=== PATIENT | male | born 1935 | race African-American/Black ===

== ENCOUNTER 2019-06-24 08:54 | Inpatient (IN) | payer MEDICARE, BC ==
[~2019-06-24] VITALS: Ht 170.2 cm; Wt 73.0 kg
[~2019-06-24 08:54] MED LIST: AMLO5TAB10 PO; ASPI-630 PO; ATOR20TA58 PO; IPRA4AER IH; LEVO250T25 PO; LOSA1TAB25 PO; LOSA25TA54 PO; METF500T11 PO; SODI650T PO; UNABLE MC
--- NOTE | 2019-06-24 09:14 | PHYS DOC ---
Past Medical History Past Medical History: Cancer, Diabetes-Type II, High Cholesterol, Hypertension Additional Past Medical Histor: PROSTATE CANCER, Past Surgical History: No Surgical History Alcohol Use: None Drug Use: None Adult General Chief Complaint Chief Complaint: DIZZY/LIGHT HEADED HPI HPI Patient is a 84 year old male that presents with nausea, vomiting, lightheadedness, tremors and dizziness that has been ongoing for 30 minutes. The patient denies the room spinning, the patient describes the lightheadedness is almost passing out. The patient denies any pain, denies any fever, denies any symptoms went to bed last night. The patient's blood pressure in the room was 187/101, patient states he took his blood pressure medicine before he went to bed last night. Review of Systems Review of Systems Constitutional: Denies fever or chills. Reports tremors. Eyes: Denies change in visual acuity, redness, or eye pain [] HENT: Denies nasal congestion or sore throat [] Respiratory: Denies cough or shortness of breath [] Cardiovascular: No additional information not addressed in HPI [] GI: Denies abdominal pain, nausea, vomiting, bloody stools or diarrhea [] : Denies dysuria or hematuria [] Musculoskeletal: Denies back pain or joint pain [] Integument: Denies rash or skin lesions [] Neurologic: Reports dizziness. Denies headache, focal weakness or sensory changes [] Endocrine: Denies polyuria or polydipsia [] Complete systems were reviewed and found to be within normal limits, except as documented in this note. Current Medications Current Medications Current Medications Medications (Trade) Dose Ordered Sig/[facility] Start Time Stop Time Status Last Admin Dose Admin Ceftriaxone Sodium (Rocephin) 1 gm 1X ONCE 06/24/19 10:45 06/24/19 10:46 DC 06/24/19 10:49 1 GM Prochlorperazine Edisylate (Compazine) 10 mg 1X ONCE 06/24/19 09:15 06/24/19 09:16 DC 06/24/19 09:36 10 MG Sodium Chloride 1,000 ml @ 1,000 mls/hr 1X ONCE 06/24/19 10:45 06/24/19 11:44 DC 06/24/19 10:49 1,000 MLS/HR Allergies Allergies Allergies Coded Allergies Type Severity Reaction Last Updated Verified No Known Drug Allergies 10/03/17 No Physical Exam Physical Exam Constitutional: Well developed, well nourished, no acute distress, non-toxic appearance. [] HENT: Normocephalic, atraumatic, bilateral external ears normal, oropharynx moist, no oral exudates, nose normal. [] Eyes: PERRLA, EOMI, conjunctiva normal, no discharge. [] Neck: Normal range of motion, no tenderness, supple, no stridor. [] Cardiovascular:Heart rate regular rhythm, no murmur [] Lungs & Thorax: Bilateral breath sounds clear to auscultation [] Abdomen: Bowel sounds normal, soft, no tenderness, no masses, no pulsatile masses. [] Skin: Warm, dry, no erythema, no rash. [] Back: No tenderness, no CVA tenderness. [] Extremities: No tenderness, no cyanosis, no clubbing, ROM intact, no edema. [] Neurologic: Alert and oriented X 3, Has bilateral arm tremors, normal sensory function, no focal deficits noted. [] Psychologic: Affect normal, judgement normal, mood normal. [] Current Patient Data Vital Signs Vital Signs Date Time Temp Pulse Resp B/P (MAP) Pulse Ox O2 Delivery O2 Flow Rate FiO2 06/24/19 09:05 98.5 121 16 187/101 (129) 98 Room Air 98.5 Lab Values Laboratory Tests Test 06/24/19 09:20 06/24/19 10:25 06/24/19 10:40 Sodium Level 141 mmol/L (136-145) Potassium Level 4.5 mmol/L (3.5-5.1) Chloride Level 104 mmol/L (98-107) Carbon Dioxide Level 25 mmol/L (21-32) Anion Gap 12 (6-14) Blood Urea Nitrogen 24 mg/dL (8-26) Creatinine 1.6 mg/dL (0.7-1.3) H Estimated GFR (Cockcroft-Gault) 50.0 BUN/Creatinine Ratio 15 (6-20) Glucose Level 132 mg/dL (70-99) H Lactic Acid Level 4.1 mmol/L (0.4-2.0) *H Calcium Level 9.1 mg/dL (8.5-10.1) Total Bilirubin 0.5 mg/dL (0.2-1.0) Aspartate Amino Transferase (AST) 15 U/L (15-37) Alanine Aminotransferase (ALT) 13 U/L (16-63) L Alkaline Phosphatase 64 U/L (46-116) Creatine Kinase 90 U/L (39-308) Troponin I Quantitative < 0.017 ng/mL (0.000-0.055) Total Protein 8.5 g/dL (6.4-8.2) H Albumin 3.9 g/dL (3.4-5.0) Albumin/Globulin Ratio 0.8 (1.0-1.7) L White Blood Count 14.6 x10^3/uL (4.0-11.0) H Red Blood Count 3.86 x10^6/uL (4.30-5.70) L Hemoglobin 10.9 g/dL (13.0-17.5) L Hematocrit 33.9 % (39.0-53.0) L Mean Corpuscular Volume 88 fL (79-100) Mean Corpuscular Hemoglobin 28 pg (25-35) Mean Corpuscular Hemoglobin Concent 32 g/dL (31-37) Red Cell Distribution Width 15.2 % (11.5-14.5) H Platelet Count 238 x10^3/uL (140-400) Neutrophils (%) (Auto) 93 % (31-73) H Lymphocytes (%) (Auto) 3 % (24-48) L Monocytes (%) (Auto) 3 % (0-9) Eosinophils (%) (Auto) 0 % (0-3) Basophils (%) (Auto) 0 % (0-3) Neutrophils # (Auto) 13.6 x10^3/uL (1.8-7.7) H Lymphocytes # (Auto) 0.5 x10^3/uL (1.0-4.8) L Monocytes # (Auto) 0.4 x10^3/uL (0.0-1.1) Eosinophils # (Auto) 0.0 x10^3/uL (0.0-0.7) Basophils # (Auto) 0.0 x10^3/uL (0.0-0.2) Platelet Estimate Pending Urine Collection Type Unknown Urine Color Yellow Urine Clarity Clear Urine pH 5.5 Urine Specific [place] 1.020 Urine Protein Negative mg/dL (NEG-TRACE) Urine Glucose (UA) Negative mg/dL (NEG) Urine Ketones (Stick) Negative mg/dL (NEG) Urine Blood Negative (NEG) Urine Nitrite Negative (NEG) Urine Bilirubin Negative (NEG) Urine Urobilinogen Dipstick 0.2 mg/dL (0.2 mg/dL) Urine Leukocyte Esterase Small (NEG) Urine RBC 0 /HPF (0-2) Urine WBC 1-4 /HPF (0-4) Urine Squamous Epithelial Cells Few /LPF Urine Amorphous Sediment Present /HPF Urine Bacteria Few /HPF (0-FEW) Laboratory Tests 06/24/19 10:25 Laboratory Tests 06/24/19 09:20 EKG EKG EKG interpreted by Dr. Zavala at 0910. EKG shows sinus tachycardia with rate of 116. The EKG has severe artifact due to tremors by patient. No STEMI. Radiology/Procedures Radiology/Procedures [][facility] [address] [place] [address] IMAGING REPORT Signed PATIENT: GEORGE VELAZQUEZ ACCOUNT: [id number] : 1935 LOCATION: ER AGE: 84 SEX: M EXAM STATUS: REG ER ORD. PHYSICIAN: SHADIA WOODS APRN REASON: near syncope PROCEDURE: CHEST PA & LATERAL PA and lateral chest radiographs 06/24/2019 CLINICAL HISTORY: Unexplained near syncope. PA and lateral digital radiographs of chest were obtained. The cardiac silhouette is normal in size. The thoracic aorta is tortuous. Calcified hilar and mediastinal lymph nodes are seen. Small calcified granulomas are seen involving both lungs, right greater than left. No acute pulmonary infiltrate is noted. No pneumothorax or pleural effusion is seen. Degenerative changes are seen involving the thoracic spine. IMPRESSION: No acute abnormality is seen. Electronically signed by: Laron Manriquez MD (06/24/2019 9:56 AM) [facility] DICTATED and SIGNED BY: LARON MANRIQUEZ MD DATE: 06/24/19 0956 Course & Med Decision Making Course & Med Decision Making Pertinent Labs and Imaging studies reviewed. (See chart for details) The patient heart rate in room is 120 on arrival, and his bp is 187/101. On assessment in the room the patient threw up into a basin. Will obtain EKG, labs including lactic acid. Will also obtain Urine, and chest x-ray. WBC and Lactic are elevated at 14,000, and 4.2. Will order 30 ml/kg fluids and Rocephin. Urine shows leukocytes. Patient appears to be septic, discussed with Dr. Goldsmith who agrees to admission. Dragon Disclaimer Dragon Disclaimer This electronic medical record was generated, in whole or in part, using a voice recognition dictation system. Departure Departure Impression: Primary Impression: Sepsis Additional Impression: Urinary tract infection Disposition: ADMITTED INPATIENT Admitting Physician: ALEXIS Condition: GUARDED Referrals: GEORGE CUELLO Jr, MD (PCP) Date and Time of Reassessment Date: Jun 24, 2019 Time: 11:56 Fluid Challenge Is the fluid challenge complet: No IBW Target Volume Used: No BMI > 30: No Vital Signs Vital Signs: Vital Signs Date Time Temp Pulse Resp B/P (MAP) Pulse Ox O2 Delivery O2 Flow Rate FiO2 06/24/19 09:05 98.5 121 16 187/101 (129) 98 Room Air 98.5 Temperature Source: Oral Respirations Respiratory Effort: Normal Cardiovascular Pulse Rhythm: Regular Heart: S1 and S2 normal Capillary Refil Capillary Refill: Rt Hand < 3 seconds Peripheral Pulse Pulse Location: Monitor Pulse Strength: Normal (2+) Pulse Assessment Method: Palpation Integumentary Skin: Warm, Dry Skin Moisture: Dry Skin Turgor: Normal Skin Color: warm, dry Fingernail Color: WNL Problem Qualifiers Primary Impression: Sepsis Sepsis type: sepsis due to unspecified organism Sepsis acute organ dysfunction status: unspecified Qualified Codes: A41.9 - Sepsis, unspecified organism Additional Impression: Urinary tract infection Urinary tract infection type: acute cystitis Hematuria presence: without hematuria Qualified Codes: N30.00 - Acute cystitis without hematuria SHADIA WOODS APRN Jun 24, 2019 09:14
[2019-06-24] MEDS ORDERED: PROCHLORPERAZINE 10 MG/2 ML VIAL. IV ONE (09:15)
[2019-06-24] MEDS ORDERED: IV NORMAL SALINE 500ML BAG 500 ML IV ONE (09:15)
--- NOTE | 2019-06-24 09:59 | RAD ---
PA and lateral chest radiographs 06/24/2019 CLINICAL HISTORY: Unexplained near syncope. PA and lateral digital radiographs of chest were obtained. The cardiac silhouette is normal in size. The thoracic aorta is tortuous. Calcified hilar and mediastinal lymph nodes are seen. Small calcified granulomas are seen involving both lungs, right greater than left. No acute pulmonary infiltrate is noted. No pneumothorax or pleural effusion is seen. Degenerative changes are seen involving the thoracic spine. IMPRESSION: No acute abnormality is seen. Electronically signed by: Laron Manriquez MD (06/24/2019 9:56 AM) [facility]
[2019-06-24 10:16] LABS: CALCIUM 9.1 mg/dL (8.5-10.1); CREATININE 1.6 mg/dL (0.7-1.3); POTASSIUM 4.5 mmol/L (3.5-5.1)
[2019-06-24 10:26] LABS: ALBUMIN 3.9 g/dL (3.4-5.0); ALBUMIN/GLOBULIN RATIO 0.8 (1.0-1.7); TOTAL BILIRUBIN 0.5 mg/dL (0.2-1.0); TOTAL PROTEIN 8.5 g/dL (6.4-8.2)
[2019-06-24 10:35] LABS: BASO % 0 % (0-3); EOS % 0 % (0-3); HEMATOCRIT 33.9 % (39.0-53.0); HEMOGLOBIN 10.9 g/dL (13.0-17.5); LYMPH # 0.5 x10^3/uL (1.0-4.8); LYMPH % 3 % (24-48); MEAN CORPUSCULAR HEMOGLOBIN 28 pg (25-35); MEAN CORPUSCULAR HGB CONC 32 g/dL (31-37); MEAN CORPUSCULAR VOLUME 88 fL (79-100); MONO # 0.4 x10^3/uL (0.0-1.1); MONO % 3 % (0-9); NEUT # 13.6 x10^3/uL (1.8-7.7); NEUT % 93 % (31-73); PLATELET COUNT 238 x10^3/uL (140-400); RED BLOOD COUNT 3.86 x10^6/uL (4.30-5.70); RED CELL DISTRIBUTION WIDTH 15.2 % (11.5-14.5); WHITE BLOOD COUNT 14.6 x10^3/uL (4.0-11.0)
[2019-06-24] MEDS ORDERED: cefTRIAXone IV Push 1 GM VIAL. IVP ONE (10:45)
[2019-06-24] MEDS ORDERED: IV NORMAL SALINE 1000ML BAG 1,000 ML IV ONE ×2 (10:45)
[2019-06-24 11:19] LABS: BILIRUBIN,URINE NEGATIVE (NEG); CLARITY,URINE CLEAR; COLOR,URINE YELLOW; NITRITE,URINE NEGATIVE (NEG); PH,URINE 5.5; PROTEIN,URINE NEGATIVE (NEG-TRACE); UROBILINOGEN,URINE 0.2 mg/dL (0.2 mg/dL)
[2019-06-24 11:22] LABS: AMORPHOUS SEDIMENT,UR PRESENT /HPF; BACTERIA,URINE FEW /HPF (0-FEW); RBC,URINE 0 /HPF (0-2); SQUAMOUS EPITHELIAL CELL,UR FEW /LPF
[2019-06-24 11:57] LABS: % LYMPHS 7 % (24-48); % MONOS 1 % (0-10); % SEGS 92 % (35-66); PLT ESTIMATE ADEQUATE (ADEQUATE)
[2019-06-24] MEDS ORDERED: fentaNYL PF VIAL 100 MCG/2 ML VIAL IV PRN (12:00)
[2019-06-24] MEDS ORDERED: ONDANSETRON PF 4 MG/2 ML VIAL. IV PRN (12:00)
[2019-06-24] MEDS ORDERED: DESM0.2T20 PO (12:54)
[2019-06-24 13:45] VITALS: BP 126/45
[2019-06-24 15:00] VITALS: BP 130/40
[2019-06-24] MEDS ORDERED: DEXTROSE 50% 25 GM / 50ML DISP.SYRIN. IV PRN (15:45)
[2019-06-24] MEDS ORDERED: IV DEXTROSE 5% 250 ML BAG. IV PRN (15:45)
--- NOTE | 2019-06-24 15:55 | PDOC1 ---
History and Physical Date of Admission Date of Admission DATE: 06/24/19 TIME: 15:29 Identification/Chief Complaint Chief Complaint Nausea and vomiting Source Source: Patient History of Present Illness History of Present Illness Mr Hollins is an 84 yo male w/ PMHx Diabetes-Type II, High Cholesterol, Hypertension, prostate cancer who p/w nausea, vomiting, lightheadedness, tremors and dizziness that has been ongoing for the entire morning after waking up. The patient denies the room spinning, the patient describes the lightheadedness is almost passing out. The patient denies any pain, denies any fever, denies any symptoms went to bed last night. The patient's blood pressure in the room was 187/101, patient states he took his blood pressure medicine before he went to bed last night. In ED lactate was 4.1, WBC 14.6, HR 125 bpm. CXR clear, troponin negative. Cr elevated at 1.6 Past Medical History Cardiovascular: HTN, Hyperlipidemia CENTRAL NERVOUS SYSTEM: Other GI: No pertinent hx Heme/Onc: Cancer Hepatobiliary: No pertinent hx Psych: No pertinent hx Musculoskeletal: Osteoarthritis Rheumatologic: No pertinent hx Infectious disease: No pertinent hx Renal/: No pertinent hx Endocrine: Diabetes Past Surgical History Past Surgical History: Hernia Repair, Colon Resection Family History Family History: Diabetes Social History Smoke: No ALCOHOL: none Drugs: None Current Problem List Problem List Problems Medical Problems: (1) Sepsis Status: Acute (2) Urinary tract infection Status: Acute Current Medications Current Medications Current Medications Prochlorperazine Edisylate (Compazine) 10 mg 1X ONCE IV Last administered on 06/24/19at 09:36; Start 06/24/19 at 09:15; Stop 06/24/19 at 09:16; Status DC Sodium Chloride 500 ml @ 500 mls/hr 1X ONCE IV Last administered on 06/24/19at 09:36; Start 06/24/19 at 09:15; Stop 06/24/19 at 10:14; Status DC Ceftriaxone Sodium (Rocephin) 1 gm 1X ONCE IVP Last administered on 06/24/19at 10:49; Start 06/24/19 at 10:45; Stop 06/24/19 at 10:46; Status DC Sodium Chloride 1,000 ml @ 1,000 mls/hr 1X ONCE IV Last administered on 06/24/19at 10:49; Start 06/24/19 at 10:45; Stop 06/24/19 at 11:44; Status DC Sodium Chloride 1,000 ml @ 1,000 mls/hr 1X ONCE IV Last administered on 06/24/19at 10:49; Start 06/24/19 at 10:45; Stop 06/24/19 at 11:44; Status DC Ondansetron HCl (Zofran) 4 mg PRN Q8HRS PRN IV NAUSEA/VOMITING; Start 06/24/19 at 12:00; Stop 06/25/19 at 11:59 Fentanyl Citrate (Fentanyl 2ml Vial) 50 mcg PRN Q1HR PRN IV PAIN; Start 06/24/19 at 12:00; Stop 06/25/19 at 11:59 Active Scripts Active Combivent Respimat Inhal (Ipratropium/Albuterol Sulfate) 4 Gm Aer.w.adap 1 Inh IH QID Levaquin (Levofloxacin) 250 Mg Tablet 250 Mg PO DAILY Sodium Bicarbonate 650 Mg Tablet 1,300 Mg PO BID Amlodipine Besylate 5 Mg Tablet 5 Mg PO DAILY Reported Ddavp (Desmopressin Acetate) 0.2 Mg Tablet 0.1 Mg PO QHS Aspirin 81 Mg Tab.chew 1 Tab PO DAILY Losartan-Hctz 100-12.5 Mg Tab (Losartan/Hydrochlorothiazide) 1 Each Tablet 1 Tab PO DAILY Atorvastatin Calcium 20 Mg Tablet 20 Mg PO DAILY Metformin Hcl Er (Metformin Hcl) 500 Mg Tab.er.24h 500 Mg PO [id number] Unable To Obtain Meds From Prior To Admit (Info) Each 1 Each Allergies Allergies: Coded Allergies: No Known Drug Allergies (Unverified , 10/03/17) ROS General: YES: Fatigue, Malaise, Appetite; No: Chills, Night Sweats, Other PSYCHOLOGICAL ROS: No: Anxiety, Behavioral Disorder, Concentration difficultie, Decreased libido, Depression, Disorientation, Hallucinations, Hostility, Irritablity, Memory difficulties, Mood Swings, Obsessive thoughts, Physical abuse, Sexual abuse, Sleep disturbances, Suicidal ideation, Other Eyes: No Blurry vision, No Decreased vision, No Double vision, No Dry eyes, No Excessive tearing, No Eye Pain, No Itchy Eyes, No Loss of vision, No Photophobia, No Scotomata, No Uses contacts, No Uses glasses, No Other HEENT: No: Heacaches, Visual Changes, Hearing change, Nasal congestion, Nasal discharge, Oral lesions, Sinus pain, Sore Throat, Epistaxis, Sneezing, Snoring, Tinnitus, Vertigo, Vocal changes, Other ALLERGY AND IMMUNOLOGY: No: Hives, Insect Bite Sensitivity, Itchy/Watery Eyes, Nasal Congestion, Post Nasal Drip, Seasonal Allergies, Other Hematological and Lymphatic: No: Bleeding Problems, Blood Clots, Blood Transfusions, Brusing, Night Sweats, Pallor, Swollen Lymph Nodes, Other ENDOCRINE: No: Breast Changes, Galactorrhea, Hair Pattern Changes, Hot Flashes, Malaise/lethargy, Mood Swings, Palpitations, Polydipsia/polyuria, Skin Changes, Temperature Intolerance, Unexpected Weight Changes, Other Breast: No New/Changing Breast Lumps, No Nipple changes, No Nipple discharge, No Other Respiratory: No: Cough, Hemoptysis, Orthopnea, Pleuritic Pain, Shortness of breath, SOB with excertion, Sputum Changes, Stridor, Tachypnea, Wheezing, Other Cardiovascular: No Chest Pain, No Palpitations, No Orthopnea, No Paroxysmal Noc. Dyspnea, No Edema, No Lt Headedness, No Other Gastrointestinal: Yes Nausea, Yes Vomiting, Yes Abdominal Pain; No Diarrhea, No Constipation, No Melena, No Hematochezia, No Other Genitourinary: YES Frequency; No Dysuria, No Incontinence, No Hematuria, No Retention, No Discharge, No Urgency, No Pain, No Flank Pain, No Other, No , No , No , No , No , No , No Musculoskeletal: Yes Gait Disturbance; No Joint Pain, No Joint Stiffness, No Joint Swelling, No Muscle Pain, No Musc ular Weakness, No Pain In:, No Swelling In:, No Other Neurological: Yes Dizziness, Yes Gait Disturbance; No Behavorial Changes, No Bowel/Bladder ControlChng, No Confusion, No Headaches, No Impaired Coord/balance, No Memory Loss, No Numbness/Tingling, No Seizures, No Speech Problems, No Tremors, No Visual Changes, No Weakness, No Other Skin: No Dry Skin, No Eczema, No Hair Changes, No Lumps, No Mole Changes, No Mottling, No Nail Changes, No Pruritus, No Rash, No Skin Lesion Changes, No Other, No Acne Physical Exam General: Alert, Cooperative, No acute distress HEENT: Atraumatic, PERRLA, EOMI, Mucous membr. moist/pink Lungs: Clear to auscultation, Normal air movement Heart: S1S2, RRR, no gallops, no murmurs Abdomen: Normal bowel sounds, Soft, No hepatosplenomegaly, No masses, Other (epigastric tenderness) Rectal Exam: not examined Extremities: No clubbing, No cyanosis, No edema, Normal pulses, No tenderness/swelling Skin: No rashes, No breakdown, No significant lesion Neuro: Normal speech, Strength at 5/5 X4 ext, Normal tone, Sensation intact, Cranial nerves 3-12 NL, Reflexes 2+ Psych/Mental Status: Mental status NL, Mood NL Vitals Vitals Vital Signs Date Time Temp Pulse Resp B/P (MAP) Pulse Ox O2 Delivery O2 Flow Rate FiO2 06/24/19 13:45 100.0 108 18 126/45 (72) Room Air 100.0 06/24/19 11:57 97 Labs Labs Laboratory Tests Test 06/24/19 09:20 06/24/19 10:25 06/24/19 10:40 06/24/19 13:50 Sodium Level 141 mmol/L (136-145) Potassium Level 4.5 mmol/L (3.5-5.1) Chloride Level 104 mmol/L (98-107) Carbon Dioxide Level 25 mmol/L (21-32) Anion Gap 12 (6-14) Blood Urea Nitrogen 24 mg/dL (8-26) Creatinine 1.6 mg/dL (0.7-1.3) Estimated GFR (Cockcroft-Gault) 50.0 BUN/Creatinine Ratio 15 (6-20) Glucose Level 132 mg/dL (70-99) Lactic Acid Level 4.1 mmol/L (0.4-2.0) 1.5 mmol/L (0.4-2.0) Calcium Level 9.1 mg/dL (8.5-10.1) Total Bilirubin 0.5 mg/dL (0.2-1.0) Aspartate Amino Transf (AST/SGOT) 15 U/L (15-37) Alanine Aminotransferase (ALT/SGPT) 13 U/L (16-63) Alkaline Phosphatase 64 U/L (46-116) Creatine Kinase 90 U/L (39-308) Troponin I Quantitative < 0.017 ng/mL (0.000-0.055) Total Protein 8.5 g/dL (6.4-8.2) Albumin 3.9 g/dL (3.4-5.0) Albumin/Globulin Ratio 0.8 (1.0-1.7) White Blood Count 14.6 x10^3/uL (4.0-11.0) Red Blood Count 3.86 x10^6/uL (4.30-5.70) Hemoglobin 10.9 g/dL (13.0-17.5) Hematocrit 33.9 % (39.0-53.0) Mean Corpuscular Volume 88 fL (79-100) Mean Corpuscular Hemoglobin 28 pg (25-35) Mean Corpuscular Hemoglobin Concent 32 g/dL (31-37) Red Cell Distribution Width 15.2 % (11.5-14.5) Platelet Count 238 x10^3/uL (140-400) Neutrophils (%) (Auto) 93 % (31-73) Lymphocytes (%) (Auto) 3 % (24-48) Monocytes (%) (Auto) 3 % (0-9) Eosinophils (%) (Auto) 0 % (0-3) Basophils (%) (Auto) 0 % (0-3) Neutrophils # (Auto) 13.6 x10^3/uL (1.8-7.7) Lymphocytes # (Auto) 0.5 x10^3/uL (1.0-4.8) Monocytes # (Auto) 0.4 x10^3/uL (0.0-1.1) Eosinophils # (Auto) 0.0 x10^3/uL (0.0-0.7) Basophils # (Auto) 0.0 x10^3/uL (0.0-0.2) Segmented Neutrophils % 92 % (35-66) Lymphocytes % 7 % (24-48) Monocytes % 1 % (0-10) Platelet Estimate Adequate (ADEQUATE) Urine Collection Type Unknown Urine Color Yellow Urine Clarity Clear Urine pH 5.5 Urine Specific [place] 1.020 Urine Protein Negative mg/dL (NEG-TRACE) Urine Glucose (UA) Negative mg/dL (NEG) Urine Ketones (Stick) Negative mg/dL (NEG) Urine Blood Negative (NEG) Urine Nitrite Negative (NEG) Urine Bilirubin Negative (NEG) Urine Urobilinogen Dipstick 0.2 mg/dL (0.2 mg/dL) Urine Leukocyte Esterase Small (NEG) Urine RBC 0 /HPF (0-2) Urine WBC 1-4 /HPF (0-4) Urine Squamous Epithelial Cells Few /LPF Urine Amorphous Sediment Present /HPF Urine Bacteria Few /HPF (0-FEW) HT-Iso-Y-Type Natriuretic Peptide 148 pg/mL (0-449) Laboratory Tests Test 06/24/19 09:20 06/24/19 10:25 06/24/19 10:40 06/24/19 13:50 Sodium Level 141 mmol/L (136-145) Potassium Level 4.5 mmol/L (3.5-5.1) Chloride Level 104 mmol/L (98-107) Carbon Dioxide Level 25 mmol/L (21-32) Anion Gap 12 (6-14) Blood Urea Nitrogen 24 mg/dL (8-26) Creatinine 1.6 mg/dL (0.7-1.3) Estimated GFR (Cockcroft-Gault) 50.0 BUN/Creatinine Ratio 15 (6-20) Glucose Level 132 mg/dL (70-99) Lactic Acid Level 4.1 mmol/L (0.4-2.0) 1.5 mmol/L (0.4-2.0) Calcium Level 9.1 mg/dL (8.5-10.1) Total Bilirubin 0.5 mg/dL (0.2-1.0) Aspartate Amino Transf (AST/SGOT) 15 U/L (15-37) Alanine Aminotransferase (ALT/SGPT) 13 U/L (16-63) Alkaline Phosphatase 64 U/L (46-116) Creatine Kinase 90 U/L (39-308) Troponin I Quantitative < 0.017 ng/mL (0.000-0.055) Total Protein 8.5 g/dL (6.4-8.2) Albumin 3.9 g/dL (3.4-5.0) Albumin/Globulin Ratio 0.8 (1.0-1.7) White Blood Count 14.6 x10^3/uL (4.0-11.0) Red Blood Count 3.86 x10^6/uL (4.30-5.70) Hemoglobin 10.9 g/dL (13.0-17.5) Hematocrit 33.9 % (39.0-53.0) Mean Corpuscular Volume 88 fL (79-100) Mean Corpuscular Hemoglobin 28 pg (25-35) Mean Corpuscular Hemoglobin Concent 32 g/dL (31-37) Red Cell Distribution Width 15.2 % (11.5-14.5) Platelet Count 238 x10^3/uL (140-400) Neutrophils (%) (Auto) 93 % (31-73) Lymphocytes (%) (Auto) 3 % (24-48) Monocytes (%) (Auto) 3 % (0-9) Eosinophils (%) (Auto) 0 % (0-3) Basophils (%) (Auto) 0 % (0-3) Neutrophils # (Auto) 13.6 x10^3/uL (1.8-7.7) Lymphocytes # (Auto) 0.5 x10^3/uL (1.0-4.8) Monocytes # (Auto) 0.4 x10^3/uL (0.0-1.1) Eosinophils # (Auto) 0.0 x10^3/uL (0.0-0.7) Basophils # (Auto) 0.0 x10^3/uL (0.0-0.2) Segmented Neutrophils % 92 % (35-66) Lymphocytes % 7 % (24-48) Monocytes % 1 % (0-10) Platelet Estimate Adequate (ADEQUATE) Urine Collection Type Unknown Urine Color Yellow Urine Clarity Clear Urine pH 5.5 Urine Specific [place] 1.020 Urine Protein Negative mg/dL (NEG-TRACE) Urine Glucose (UA) Negative mg/dL (NEG) Urine Ketones (Stick) Negative mg/dL (NEG) Urine Blood Negative (NEG) Urine Nitrite Negative (NEG) Urine Bilirubin Negative (NEG) Urine Urobilinogen Dipstick 0.2 mg/dL (0.2 mg/dL) Urine Leukocyte Esterase Small (NEG) Urine RBC 0 /HPF (0-2) Urine WBC 1-4 /HPF (0-4) Urine Squamous Epithelial Cells Few /LPF Urine Amorphous Sediment Present /HPF Urine Bacteria Few /HPF (0-FEW) OK-Oea-U-Type Natriuretic Peptide 148 pg/mL (0-449) Images Images CXR - no acute abnormality CT Neck 03/2018 - 1. Moderate atherosclerotic plaquing at the left carotid bifurcation with 50-60 percent diameter narrowing of the proximal left internal carotid artery, and high-grade stenosis at the origin of the left external carotid artery. 2. Mild atherosclerotic plaquing and narrowing of the proximal right internal carotid artery. 3. 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 4. Dominant right vertebral artery in the neck. VTE Prophylaxis Ordered VTE Prophylaxis Devices: Yes VTE Pharmacological Prophylaxi: No Assessment/Plan Assessment/Plan A/P: Intractable nausea and vomiting - improved with IV antiemetics Dizziness - not clear the etiology. prior CTA neck showed greater than 50% stenosis of left carotid and subclavian as well as right vertebral dominant circulation, will get carotid doppler Gait instability - will have PT/OT evaluate SIRS - source unclear at this time. Could be urinary tract infection (with prostate cancer history and LE positive this is likely) or probable pneumonia, though chest x-ray is negative. Lactic acidosis - likely combination from vomiting and early sepsis. Repeat improved after some IVF resuscitation Acute kidney injury - likely vasomotor nephropathy. will hydrate History of prostate cancer status post radiation and hormonal therapy last couple of years ago - has good f/u Anemia - likely of chronic disease DM2 - place on low sliding scale HLD - cont statin HTN - Monitor BP. Goals for age 80 and greater are liberalized per new guidelines to 150/90mmHg FEN - ADA diet PPX - heparin FULL CODE Dispo - inpatient LIZ ZAMBRANO MD Jun 24, 2019 15:55
[2019-06-24] MEDS: INSULIN LISPRO 300 UNITS/3 ML VIAL. SQ SCH ×2 (16:30→20:51)
[2019-06-24] MEDS: ASPIRIN CHEWABLE 81 MG TABLET. PO SCH (16:57)
[2019-06-24] MEDS: amLODIPine BESYLATE 5 MG TABLET PO SCH (16:58)
[2019-06-24] MEDS ORDERED: NON FORMULARY ITEM (Ipratropium/Albuterol Sulfate (Combivent Respimat Inhal) 1 INH) IH SCH (17:00)
--- NOTE | 2019-06-24 17:07 | RAD ---
Bilateral carotid arterial duplex study 07/04/2019 Clinical History: Dizziness. History of carotid disease. Technique: Using a combination of real-time ultrasound imaging and color-flow and pulse Doppler imaging techniques, duplex evaluation of the carotid and vertebral arterial structures within the neck was performed. Multiple images were obtained. Velocity measurements estimating the degree of stenosis are based on NASCET criteria. Findings: Mild to moderate atheromatous/atherosclerotic plaque formation is seen involving both carotid bifurcations and internal carotid arteries, left greater than right. The peak systolic velocity within the proximal left internal carotid artery is elevated measuring 235 cm/s. The end-diastolic velocity is elevated measuring 54 cm/s. The ICA/CCA ratio is a not significantly elevated likely due to an elevated velocity within the proximal left common carotid artery. These findings when combined with the real-time images are consistent with a stenosis of 50-69 percent. No hemodynamically significant stenosis is seen involving the right internal carotid artery within the neck. Moderate to severe stenoses are seen involving both external carotid artery origins, left greater than right. The right vertebral artery demonstrates normal antegrade flow. The left vertebral artery is not visualized and may be occluded. IMPRESSION: Mild to moderate atheromatous/atherosclerotic plaque formation is seen involving both carotid bifurcations, left greater than right. A 50-69 percent stenosis is seen involving the proximal left internal carotid artery. The left vertebral artery is not visualized and may be occluded. Electronically signed by: Laron Manriquez MD (06/24/2019 5:05 PM) [facility]
[2019-06-24] MEDS: IPRATRPIUM/ALBUTEROL 0.5/2.5MG 3 ML NEBU. NEB SCH ×2 (19:30→20:00)
[2019-06-24 19:46] VITALS: BP 117/44
[2019-06-24] MEDS: ATORVASTATIN CALCIUM 20 MG TABLET PO SCH (20:25)
[2019-06-24] MEDS: SODIUM BICARBONATE 650 MG TABLET. PO SCH (20:25)
[2019-06-24 23:12] VITALS: BP 118/47
[2019-06-25 03:29] VITALS: BP 102/32
[2019-06-25] MEDS: INSULIN LISPRO 300 UNITS/3 ML VIAL. SQ SCH ×4 (07:30→20:05)
--- NOTE | 2019-06-25 07:38 | EKG ---
[facility] [address] [place] [address] Test Date: 2019-06-24 Test Time: 09:08:00 Pat Name: GEORGE VELAZQUEZ Department: Room: Gender: M [employer] Representative: : [id number] Requested By: SHADIA WOODS Order Number: [id number] Reading MD: Measurements Intervals [place] Rate: 116 P: -139 GA: 202 QRS: 43 QRSD: 76 T: 34 QT: 286 QTc: 403 Interpretive Statements SUPRAVENTRICULAR RHYTHM PROLONGED GA INTERVAL LEFT ATRIAL ABNORMALITY QRS(T) CONTOUR ABNORMALITY CONSIDER ANTEROLATERAL MYOCARDIAL DAMAGE CONSIDER INFERIOR MYOCARDIAL DAMAGE ABNORMAL ECG RI6.01 Unconfirmed report No previous ECG available for comparison
[2019-06-25 07:47] VITALS: BP 118/40
[2019-06-25] MEDS: IPRATRPIUM/ALBUTEROL 0.5/2.5MG 3 ML NEBU. NEB SCH ×4 (08:03→20:13)
[2019-06-25] MEDS: cefTRIAXone IV Push 1 GM VIAL. IVP SCH (09:33)
[2019-06-25] MEDS: SODIUM BICARBONATE 650 MG TABLET. PO SCH ×2 (09:34→20:06)
[2019-06-25] MEDS: amLODIPine BESYLATE 5 MG TABLET PO SCH (09:34)
[2019-06-25] MEDS: ASPIRIN CHEWABLE 81 MG TABLET. PO SCH (09:35)
[2019-06-25 11:16] VITALS: BP 133/53
[2019-06-25 15:04] VITALS: BP 109/48
--- NOTE | 2019-06-25 15:53 | PDOC ---
PROGRESS NOTES Chief Complaint Chief Complaint nausea and vomiting - improved Dizziness - stenosis of left carotid and subclavian as well as right vertebral dominant circulation, Gait instability - PT/OT evaluate sepsis, UTI Acute kidney injury - vasomotor nephropathy. History of prostate cancer status post radiation and hormonal therapy last couple of years ago - has good f/u Anemia - DM2 - place on low sliding scale HLD - cont statin HTN - History of Present Illness History of Present Illness consult vacular, carotid and other stenosis, Pt and OT, OK cx pending, cont IV abx for UTI, 10/20 blood cx pos, poss contam, vitals much improved from yesterday cont current Vitals Vitals Vital Signs Date Time Temp Pulse Resp B/P (MAP) Pulse Ox O2 Delivery O2 Flow Rate FiO2 06/25/19 15:04 98.0 73 18 109/48 (68) 100 Room Air 98.0 Physical Exam General: Alert, Cooperative, No acute distress Lungs: Clear Abdomen: Normal bowel sounds, Soft, No hepatosplenomegaly, No masses, Other (epigastric tenderness) Extremities: No clubbing, No cyanosis, No edema, Normal pulses, No tenderness/swelling Skin: No rashes, No breakdown, No significant lesion Labs LABS Laboratory Tests Test 06/24/19 16:43 06/24/19 20:33 06/25/19 07:18 06/25/19 10:51 Glucose (Fingerstick) 120 mg/dL (70-99) 105 mg/dL (70-99) 90 mg/dL (70-99) 136 mg/dL (70-99) Assessment and Plan Assessmemt and Plan Problems Medical Problems: (1) EARNESTINE (acute kidney injury) Status: Acute (2) Anemia Status: Chronic (3) DM2 (diabetes mellitus, type 2) Status: Chronic (4) HLD (hyperlipidemia) Status: Chronic (5) HTN (hypertension) Status: Chronic (6) Sepsis Status: Acute (7) Urinary tract infection Status: Acute Comment Review of Relevant I have reviewed the following items dale (where applicable) has been applied. Labs Laboratory Tests Test 06/24/19 09:20 06/24/19 10:25 06/24/19 10:40 06/24/19 13:50 Sodium Level 141 mmol/L (136-145) Potassium Level 4.5 mmol/L (3.5-5.1) Chloride Level 104 mmol/L (98-107) Carbon Dioxide Level 25 mmol/L (21-32) Anion Gap 12 (6-14) Blood Urea Nitrogen 24 mg/dL (8-26) Creatinine 1.6 mg/dL (0.7-1.3) Estimated GFR (Cockcroft-Gault) 50.0 BUN/Creatinine Ratio 15 (6-20) Glucose Level 132 mg/dL (70-99) Lactic Acid Level 4.1 mmol/L (0.4-2.0) 1.5 mmol/L (0.4-2.0) Calcium Level 9.1 mg/dL (8.5-10.1) Total Bilirubin 0.5 mg/dL (0.2-1.0) Aspartate Amino Transf (AST/SGOT) 15 U/L (15-37) Alanine Aminotransferase (ALT/SGPT) 13 U/L (16-63) Alkaline Phosphatase 64 U/L (46-116) Creatine Kinase 90 U/L (39-308) Troponin I Quantitative < 0.017 ng/mL (0.000-0.055) Total Protein 8.5 g/dL (6.4-8.2) Albumin 3.9 g/dL (3.4-5.0) Albumin/Globulin Ratio 0.8 (1.0-1.7) White Blood Count 14.6 x10^3/uL (4.0-11.0) Red Blood Count 3.86 x10^6/uL (4.30-5.70) Hemoglobin 10.9 g/dL (13.0-17.5) Hematocrit 33.9 % (39.0-53.0) Mean Corpuscular Volume 88 fL (79-100) Mean Corpuscular Hemoglobin 28 pg (25-35) Mean Corpuscular Hemoglobin Concent 32 g/dL (31-37) Red Cell Distribution Width 15.2 % (11.5-14.5) Platelet Count 238 x10^3/uL (140-400) Neutrophils (%) (Auto) 93 % (31-73) Lymphocytes (%) (Auto) 3 % (24-48) Monocytes (%) (Auto) 3 % (0-9) Eosinophils (%) (Auto) 0 % (0-3) Basophils (%) (Auto) 0 % (0-3) Neutrophils # (Auto) 13.6 x10^3/uL (1.8-7.7) Lymphocytes # (Auto) 0.5 x10^3/uL (1.0-4.8) Monocytes # (Auto) 0.4 x10^3/uL (0.0-1.1) Eosinophils # (Auto) 0.0 x10^3/uL (0.0-0.7) Basophils # (Auto) 0.0 x10^3/uL (0.0-0.2) Segmented Neutrophils % 92 % (35-66) Lymphocytes % 7 % (24-48) Monocytes % 1 % (0-10) Platelet Estimate Adequate (ADEQUATE) Urine Collection Type Unknown Urine Color Yellow Urine Clarity Clear Urine pH 5.5 Urine Specific [place] 1.020 Urine Protein Negative mg/dL (NEG-TRACE) Urine Glucose (UA) Negative mg/dL (NEG) Urine Ketones (Stick) Negative mg/dL (NEG) Urine Blood Negative (NEG) Urine Nitrite Negative (NEG) Urine Bilirubin Negative (NEG) Urine Urobilinogen Dipstick 0.2 mg/dL (0.2 mg/dL) Urine Leukocyte Esterase Small (NEG) Urine RBC 0 /HPF (0-2) Urine WBC 1-4 /HPF (0-4) Urine Squamous Epithelial Cells Few /LPF Urine Amorphous Sediment Present /HPF Urine Bacteria Few /HPF (0-FEW) UB-Ksl-F-Type Natriuretic Peptide 148 pg/mL (0-449) Procalcitonin 13.15 ng/mL (0.00-0.10) Test 06/24/19 16:43 06/24/19 20:33 06/25/19 07:18 06/25/19 10:51 Glucose (Fingerstick) 120 mg/dL (70-99) 105 mg/dL (70-99) 90 mg/dL (70-99) 136 mg/dL (70-99) Laboratory Tests Test 06/24/19 16:43 06/24/19 20:33 06/25/19 07:18 06/25/19 10:51 Glucose (Fingerstick) 120 mg/dL (70-99) 105 mg/dL (70-99) 90 mg/dL (70-99) 136 mg/dL (70-99) Microbiology 06/24/19 Blood Culture - Preliminary, Resulted NO GROWTH AFTER 1 DAY Medications Current Medications Prochlorperazine Edisylate (Compazine) 10 mg 1X ONCE IV Last administered on 06/24/19 09:36; Start 06/24/19 at 09:15; Stop 06/24/19 at 09:16; Status DC Sodium Chloride 500 ml @ 500 mls/hr 1X ONCE IV Last administered on 06/24/19 09:36; Start 06/24/19 at 09:15; Stop 06/24/19 at 10:14; Status DC Ceftriaxone Sodium (Rocephin) 1 gm 1X ONCE IVP Last administered on 06/24/19at 10:49; Start 06/24/19 at 10:45; Stop 06/24/19 at 10:46; Status DC Sodium Chloride 1,000 ml @ 1,000 mls/hr 1X ONCE IV Last administered on 06/24/19at 10:49; Start 06/24/19 at 10:45; Stop 06/24/19 at 11:44; Status DC Sodium Chloride 1,000 ml @ 1,000 mls/hr 1X ONCE IV Last administered on 06/24/19at 10:49; Start 06/24/19 at 10:45; Stop 06/24/19 at 11:44; Status DC Ondansetron HCl (Zofran) 4 mg PRN Q8HRS PRN IV NAUSEA/VOMITING; Start 06/24/19 at 12:00; Stop 06/25/19 at 11:59; Status DC Fentanyl Citrate (Fentanyl 2ml Vial) 50 mcg PRN Q1HR PRN IV PAIN; Start 06/24/19 at 12:00; Stop 06/25/19 at 11:59; Status DC Amlodipine Besylate (Norvasc) 5 mg DAILY PO Last administered on 06/25/19 09:35; Start 06/24/19 at 16:00 Aspirin (Children'S Aspirin) 81 mg DAILY PO Last administered on 06/25/19 09:35; Start 06/24/19 at 16:00 Atorvastatin Calcium (Lipitor) 20 mg QHS PO Last administered on 06/24/19at 20:26; Start 06/24/19 at 21:00 Sodium Bicarbonate (Sodium Bicarbonate) 1,300 mg BID PO Last administered on 06/25/19 09:35; Start 06/24/19 at 21:00 Non-Formulary Medication (Ipratropium/ Albuterol Sulfate (Combivent Respimat Inhal)) 1 inh QID IH ; Start 06/24/19 at 17:00; Status UNV Insulin Human Lispro (HumaLOG) 0-5 UNITS TIDACHC SQ ; Start 06/24/19 at 16:30 Dextrose (Dextrose 50%-Water Syringe) 12.5 gm PRN Q15MIN PRN IV SEE COMMENTS; Start 06/24/19 at 15:45 Dextrose 250 ml PRN Q15MIN PRN IV SEE COMMENTS; Start 06/24/19 at 15:45 Albuterol/ Ipratropium (Duoneb) 3 ml RTQID NEB Last administered on 06/25/19at 11:52; Start 06/24/19 at 16:00 Ceftriaxone Sodium (Rocephin) 1 gm Q24H IVP Last administered on 06/25/19at 09:35; Start 06/25/19 at 09:00 Active Scripts Active Combivent Respimat Inhal (Ipratropium/Albuterol Sulfate) 4 Gm Aer.w.adap 1 Inh IH QID Levaquin (Levofloxacin) 250 Mg Tablet 250 Mg PO DAILY Sodium Bicarbonate 650 Mg Tablet 1,300 Mg PO BID Amlodipine Besylate 5 Mg Tablet 5 Mg PO DAILY Reported Ddavp (Desmopressin Acetate) 0.2 Mg Tablet 0.1 Mg PO QHS Aspirin 81 Mg Tab.chew 1 Tab PO DAILY Losartan-Hctz 100-12.5 Mg Tab (Losartan/Hydrochlorothiazide) 1 Each Tablet 1 Tab PO DAILY Atorvastatin Calcium 20 Mg Tablet 20 Mg PO DAILY Metformin Hcl Er (Metformin Hcl) 500 Mg Tab.er.24h 500 Mg PO DAILYWBKFT Unable To Obtain Meds From Prior To Admit (Info) Each 1 Each Vitals/I & O Vital Sign - Last 24 Hours 06/24/19 06/24/19 06/24/19 06/24/19 16:58 19:32 19:46 20:00 Temp 98.3 98.3 Pulse 90 69 Resp 16 B/P (MAP) 130/40 117/44 (68) Pulse Ox 96 98 O2 Delivery Room Air Room Air 06/24/19 06/25/19 06/25/19 06/25/19 23:12 03:29 07:47 08:00 Temp 98.7 97.5 98.4 98.7 97.5 98.4 Pulse 81 72 63 Resp 18 18 18 B/P (MAP) 118/47 (70) 102/32 (55) 118/40 (66) Pulse Ox 99 96 99 O2 Delivery Room Air Room Air Room Air Room Air 06/25/19 06/25/19 06/25/19 06/25/19 08:03 09:35 11:16 11:52 Temp 97.4 97.4 Pulse 63 76 Resp 18 B/P (MAP) 118/40 133/53 (79) Pulse Ox 99 100 O2 Delivery Room Air Room Air Room Air 06/25/19 15:04 Temp 98.0 98.0 Pulse 73 Resp 18 B/P (MAP) 109/48 (68) Pulse Ox 100 O2 Delivery Room Air Intake and Output 06/24/19 06/24/19 06/25/19 14:59 22:59 06:59 Intake Total 500 ml 400 ml 100 ml Output Total 4 ml Balance 500 ml 396 ml 100 ml ALDAIR BRADLEY MD Jun 25, 2019 15:53
[2019-06-25 19:49] VITALS: BP 128/48
[2019-06-25] MEDS: ATORVASTATIN CALCIUM 20 MG TABLET PO SCH (20:06)
[2019-06-25 22:52] VITALS: BP 115/49
[2019-06-26 03:25] VITALS: BP 124/46
[2019-06-26] MEDS: INSULIN LISPRO 300 UNITS/3 ML VIAL. SQ SCH ×4 (07:30→21:00)
[2019-06-26] MEDS: IPRATRPIUM/ALBUTEROL 0.5/2.5MG 3 ML NEBU. NEB SCH ×5 (07:31→19:38)
[2019-06-26 07:37] VITALS: BP 113/46
[2019-06-26] MEDS: ASPIRIN CHEWABLE 81 MG TABLET. PO SCH (08:51)
[2019-06-26] MEDS: cefTRIAXone IV Push 1 GM VIAL. IVP SCH (08:51)
[2019-06-26] MEDS: SODIUM BICARBONATE 650 MG TABLET. PO SCH ×2 (08:51→21:17)
[2019-06-26] MEDS: amLODIPine BESYLATE 5 MG TABLET PO SCH (08:52)
--- NOTE | 2019-06-26 09:45 | PDOC2 ---
CONSULT Date of Consult Date of Consult DATE: 06/26/19 TIME: 09:17 Reason for Consult Reason for Consult: Bilateral carotid artery stenosis, left subclavian artery stenosis. Referring Physician Referring Physician: Dr. Wynne Identification/Chief Complaint Chief Complaint Nausea, vomiting and dizziness. Source Source: Chart review, Patient History of Present Illness Reason for Visit: This is a pleasant a [id number] male with a past medical history of diabetes, hyperlipidemia, tension who presented with nausea, vomiting, dizziness and tremors. At the time of admission the patient denied any pain, fevers, or chills. The patient's blood pressure was noted to be 187/101. On admission the patient's lactate 4.1, WBCs 14.6. The patient reports a history of dizziness approximately one and a half months ago at that time he had a CT of his neck which demonstrated moderate plaque at the left carotid bifurcation with 50-60% diameter narrowing of the proximal left internal carotid artery. Mild atherosclerotic plaquing and narrowing of the proximal right internal carotid artery. Moderate stenosis of the mid to distal left subclavian artery and a dominant right vertebral artery. He notes at that time he was also diagnosed with urinary tract infection and upon treatment all his symptoms subsided and he has not reported any new symptoms until this episode. She denies any stroke like symptoms to include extremity weakness, slurred speech, or visual disturbances. In addition patient denies any history of lower extremity claudication. Patient denies any tobacco use. He is currently on statin therapy and aspirin daily. He is currently on IV antibiotics for UTI. He reports no new symptoms since adm ission. Past Medical History Cardiovascular: HTN, Hyperlipidemia CENTRAL NERVOUS SYSTEM: Other GI: No pertinent hx Heme/Onc: Cancer Hepatobiliary: No pertinent hx Psych: No pertinent hx Musculoskeletal: Osteoarthritis Rheumatologic: No pertinent hx Infectious disease: No pertinent hx Renal/: No pertinent hx Endocrine: Diabetes Past Surgical History Past Surgical History: Hernia Repair, Colon Resection Family History Family History: Diabetes Social History No ALCOHOL: none Drugs: None Lives: with Family Current Problem List Problem List Problems Medical Problems: (1) EARNESTINE (acute kidney injury) Status: Acute (2) Anemia Status: Chronic (3) DM2 (diabetes mellitus, type 2) Status: Chronic (4) HLD (hyperlipidemia) Status: Chronic (5) HTN (hypertension) Status: Chronic (6) Sepsis Status: Acute (7) Urinary tract infection Status: Acute Current Medications Current Medications Current Medications Prochlorperazine Edisylate (Compazine) 10 mg 1X ONCE IV Last administered on 06/24/19 09:36; Start 06/24/19 at 09:15; Stop 06/24/19 at 09:16; Status DC Sodium Chloride 500 ml @ 500 mls/hr 1X ONCE IV Last administered on 06/24/19 09:36; Start 06/24/19 at 09:15; Stop 06/24/19 at 10:14; Status DC Ceftriaxone Sodium (Rocephin) 1 gm 1X ONCE IVP Last administered on 06/24/19at 10:49; Start 06/24/19 at 10:45; Stop 06/24/19 at 10:46; Status DC Sodium Chloride 1,000 ml @ 1,000 mls/hr 1X ONCE IV Last administered on 06/24/19at 10:49; Start 06/24/19 at 10:45; Stop 06/24/19 at 11:44; Status DC Sodium Chloride 1,000 ml @ 1,000 mls/hr 1X ONCE IV Last administered on 06/24/19at 10:49; Start 06/24/19 at 10:45; Stop 06/24/19 at 11:44; Status DC Ondansetron HCl (Zofran) 4 mg PRN Q8HRS PRN IV NAUSEA/VOMITING; Start 06/24/19 at 12:00; Stop 06/25/19 at 11:59; Status DC Fentanyl Citrate (Fentanyl 2ml Vial) 50 mcg PRN Q1HR PRN IV PAIN; Start 06/24/19 at 12:00; Stop 06/25/19 at 11:59; Status DC Amlodipine Besylate (Norvasc) 5 mg DAILY PO Last administered on 06/26/19 08:52; Start 06/24/19 at 16:00 Aspirin (Children'S Aspirin) 81 mg DAILY PO Last administered on 06/26/19 08:52; Start 06/24/19 at 16:00 Atorvastatin Calcium (Lipitor) 20 mg QHS PO Last administered on 06/25/19at 20:07; Start 06/24/19 at 21:00 Sodium Bicarbonate (Sodium Bicarbonate) 1,300 mg BID PO Last administered on 9/10/19at 08:52; Start 06/24/19 at 21:00 Non-Formulary Medication (Ipratropium/ Albuterol Sulfate (Combivent Respimat Inhal)) 1 inh QID IH ; Start 06/24/19 at 17:00; Status UNV Insulin Human Lispro (HumaLOG) 0-5 UNITS TIDACHC SQ ; Start 06/24/19 at 16:30 Dextrose (Dextrose 50%-Water Syringe) 12.5 gm PRN Q15MIN PRN IV SEE COMMENTS; Start 06/24/19 at 15:45 Dextrose 250 ml PRN Q15MIN PRN IV SEE COMMENTS; Start 06/24/19 at 15:45 Albuterol/ Ipratropium (Duoneb) 3 ml RTQID NEB Last administered on 06/26/19at 07:37; Start 06/24/19 at 16:00 Ceftriaxone Sodium (Rocephin) 1 gm Q24H IVP Last administered on 06/26/19at 08:52; Start 06/25/19 at 09:00 Active Scripts Active Combivent Respimat Inhal (Ipratropium/Albuterol Sulfate) 4 Gm Aer.w.adap 1 Inh IH QID Levaquin (Levofloxacin) 250 Mg Tablet 250 Mg PO DAILY Sodium Bicarbonate 650 Mg Tablet 1,300 Mg PO BID Amlodipine Besylate 5 Mg Tablet 5 Mg PO DAILY Reported Ddavp (Desmopressin Acetate) 0.2 Mg Tablet 0.1 Mg PO QHS Aspirin 81 Mg Tab.chew 1 Tab PO DAILY Losartan-Hctz 100-12.5 Mg Tab (Losartan/Hydrochlorothiazide) 1 Each Tablet 1 Tab PO DAILY Atorvastatin Calcium 20 Mg Tablet 20 Mg PO DAILY Metformin Hcl Er (Metformin Hcl) 500 Mg Tab.er.24h 500 Mg PO DAILYWBKFT Unable To Obtain Meds From Prior To Admit (Info) Each 1 Each Allergies Allergies: Coded Allergies: No Known Drug Allergies (Unverified , 10/03/17) ROS Review of System Constitutional: No fever, chills, fatigue or weight loss. Respiratory: No cough or sputum production. Cardiovascular: No chest pain, palpitations or peripheral edema. Gastrointestinal: As per HPI> Integumentary/breast: No rash, or rhinitis or skin changes. Musculoskeletal: As per HPI Neurological: No gross deficits All other reviews systems negative except history of present illness. Physical Exam Physical Exam Gen.: Alert and oriented �3. Cardiac: HRR, left carotid bruit and subclavian bruit. Normal right carotid pulse. Lungs: CTA, nonlabored respirations. Abdomen: Soft, nontender, nondistended, no palpable masses. Healed lower midline incision. Extremities: 2+ palpable bilateral radial, femoral, and popliteal pulses, 2+ palpable left or [place] pedis pulse, weakly palpable right Skin: No lesions or rashes noted. Neurological: Speech clear, no facial asymmetry, Motor strength equal and strong, sensation intact. Vitals VITALS Vital Signs Date Time Temp Pulse Resp B/P (MAP) Pulse Ox O2 Delivery O2 Flow Rate FiO2 06/26/19 08:52 68 113/46 06/26/19 07:37 98.3 18 96 Room Air 98.3 Labs Labs Laboratory Tests Test 06/24/19 09:20 06/24/19 10:25 06/24/19 10:40 06/24/19 13:50 Sodium Level 141 mmol/L (136-145) Potassium Level 4.5 mmol/L (3.5-5.1) Chloride Level 104 mmol/L (98-107) Carbon Dioxide Level 25 mmol/L (21-32) Anion Gap 12 (6-14) Blood Urea Nitrogen 24 mg/dL (8-26) Creatinine 1.6 mg/dL (0.7-1.3) Estimated GFR (Cockcroft-Gault) 50.0 BUN/Creatinine Ratio 15 (6-20) Glucose Level 132 mg/dL (70-99) Lactic Acid Level 4.1 mmol/L (0.4-2.0) 1.5 mmol/L (0.4-2.0) Calcium Level 9.1 mg/dL (8.5-10.1) Total Bilirubin 0.5 mg/dL (0.2-1.0) Aspartate Amino Transf (AST/SGOT) 15 U/L (15-37) Alanine Aminotransferase (ALT/SGPT) 13 U/L (16-63) Alkaline Phosphatase 64 U/L (46-116) Creatine Kinase 90 U/L (39-308) Troponin I Quantitative < 0.017 ng/mL (0.000-0.055) Total Protein 8.5 g/dL (6.4-8.2) Albumin 3.9 g/dL (3.4-5.0) Albumin/Globulin Ratio 0.8 (1.0-1.7) White Blood Count 14.6 x10^3/uL (4.0-11.0) Red Blood Count 3.86 x10^6/uL (4.30-5.70) Hemoglobin 10.9 g/dL (13.0-17.5) Hematocrit 33.9 % (39.0-53.0) Mean Corpuscular Volume 88 fL (79-100) Mean Corpuscular Hemoglobin 28 pg (25-35) Mean Corpuscular Hemoglobin Concent 32 g/dL (31-37) Red Cell Distribution Width 15.2 % (11.5-14.5) Platelet Count 238 x10^3/uL (140-400) Neutrophils (%) (Auto) 93 % (31-73) Lymphocytes (%) (Auto) 3 % (24-48) Monocytes (%) (Auto) 3 % (0-9) Eosinophils (%) (Auto) 0 % (0-3) Basophils (%) (Auto) 0 % (0-3) Neutrophils # (Auto) 13.6 x10^3/uL (1.8-7.7) Lymphocytes # (Auto) 0.5 x10^3/uL (1.0-4.8) Monocytes # (Auto) 0.4 x10^3/uL (0.0-1.1) Eosinophils # (Auto) 0.0 x10^3/uL (0.0-0.7) Basophils # (Auto) 0.0 x10^3/uL (0.0-0.2) Segmented Neutrophils % 92 % (35-66) Lymphocytes % 7 % (24-48) Monocytes % 1 % (0-10) Platelet Estimate Adequate (ADEQUATE) Urine Collection Type Unknown Urine Color Yellow Urine Clarity Clear Urine pH 5.5 Urine Specific [place] 1.020 Urine Protein Negative mg/dL (NEG-TRACE) Urine Glucose (UA) Negative mg/dL (NEG) Urine Ketones (Stick) Negative mg/dL (NEG) Urine Blood Negative (NEG) Urine Nitrite Negative (NEG) Urine Bilirubin Negative (NEG) Urine Urobilinogen Dipstick 0.2 mg/dL (0.2 mg/dL) Urine Leukocyte Esterase Small (NEG) Urine RBC 0 /HPF (0-2) Urine WBC 1-4 /HPF (0-4) Urine Squamous Epithelial Cells Few /LPF Urine Amorphous Sediment Present /HPF Urine Bacteria Few /HPF (0-FEW) SR-Zpu-[id number]-Type Natriuretic Peptide 148 pg/mL (0-449) Procalcitonin 13.15 ng/mL (0.00-0.10) Test 06/24/19 16:43 06/24/19 20:33 06/25/19 07:18 06/25/19 10:51 Glucose (Fingerstick) 120 mg/dL (70-99) 105 mg/dL (70-99) 90 mg/dL (70-99) 136 mg/dL (70-99) Test 06/25/19 16:40 06/25/19 19:30 06/26/19 07:12 Glucose (Fingerstick) 116 mg/dL (70-99) 143 mg/dL (70-99) 114 mg/dL (70-99) Laboratory Tests Test 06/25/19 10:51 06/25/19 16:40 06/25/19 19:30 06/26/19 07:12 Glucose (Fingerstick) 136 mg/dL (70-99) 116 mg/dL (70-99) 143 mg/dL (70-99) 114 mg/dL (70-99) Images Images Carotid Ultrasound 06/25/2019 IMPRESSION: Mild to moderate atheromatous/atherosclerotic plaque formation is seen involving both carotid bifurcations, left greater than right. A 50-69 percent stenosis is seen involving the proximal left internal carotid artery. The left vertebral artery is not visualized and may be occluded. CTA neck 04/14/2019 IMPRESSION: 1. Moderate atherosclerotic plaquing at the left carotid bifurcation with 50-60 percent diameter narrowing of the proximal left internal carotid artery, and high-grade stenosis at the origin of the left external carotid artery. 2. Mild atherosclerotic plaquing and narrowing of the proximal right internal carotid artery. 3. 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 4. Dominant right vertebral artery in the neck. Assessment/Plan Assessment/Plan 84 year old male admitted with dizziness, sepsis with urinary tract infection with bilateral carotid artery stenosis and left subclavian artery stenosis. By physical exam he has strongly palpable left radial pulse. He denies any history of stroke or TIA type symptoms and his current symptoms of dizziness and tremors have subsided. It is unlikely that his carotid or subclavian stenosis is contributing to his current symptoms. Ultrasound suggests left ICA stenosis 50- 69% consistent with CTA, although I am unable to view the images or worksheet to see the ICA/CCA ratio. Would wait to proceed with any surgical or interventional procedure until his sepsis and UTI have resolved. Recommend continued risk factor modification to include good diabetes control, hypertensive management, hyperlipidemia management and daily aspirin. Will discuss history and physical examination with Dr. Ely, he will review the radiology studies and make additional recommendations as needed. In addition we recommend follow-up carotid ultrasound in 6 months. Thank you for the opportunity to participate this patient's care. RADHA GIRALDO APRN Jun 26, 2019 09:45
[2019-06-26 11:00] VITALS: BP 114/42
[2019-06-26] MEDS ORDERED: DAPTOmycin (GENERIC) IVPB 440 MG in IV NORMAL SALINE 50ML 50 ML IV SCH (12:00)
[2019-06-26] MEDS ORDERED: DAPTOmycin (GENERIC) IVPB 440 MG in IV NORMAL SALINE 50ML 50 ML IV ONE (12:45)
--- NOTE | 2019-06-26 14:09 | NUR ---
SW following pt for dc planning. Chart reviewed . Pt lives at home with spouse and does not have PT/OT needs. SW will continue to follow pending dc needs.
[2019-06-26 15:26] VITALS: BP 126/48
[2019-06-26 19:37] VITALS: BP 138/41
[2019-06-26] MEDS: LACTOBACILLUS RHAMNOSUS GG 1 CAPSULE. PO SCH (21:17)
[2019-06-26] MEDS: ATORVASTATIN CALCIUM 20 MG TABLET PO SCH (21:17)
[2019-06-26 23:12] VITALS: BP 135/44
--- NOTE | 2019-06-27 00:23 | CONS ---
DATE OF CONSULTATION: 06/26/2019 REFERRING PHYSICIAN: Dr. Crandall. REASON FOR CONSULTATION: Bacteremia. HISTORY OF PRESENT ILLNESS: An 84-year-old male, who lives at home, presented to the ER on 06/24/2019 with nausea, vomiting, lightheadedness and dizziness, which started the day when he presented to the ER. He denied any fever, though his temperature was 100.3. He was found to have leukocytosis and lactic acidosis. His UA showed 1-4 wbc's, small leukocyte esterase. He denied any pain, denied being on any antibiotics prior to admission. Denies any sick contact. His blood pressure was high at 187/101. He was given a dose of ceftriaxone and was admitted to the medical floor. Blood cultures were done, 2 out of 4 are reported positive for GPC, ID and THALIA is pending at this time. ID consult has been requested for antibiotic management. The patient is on ceftriaxone 1 g IV daily. The patient underwent a chest x-ray, which showed no acute abnormality. Carotid Doppler study showed [id number] atherosclerotic plaque formation in both carotid bifurcations, left greater than right. The patient also had stenosis involving the proximal left internal carotid artery, left vertebral artery was not visualized and may be occluded. Vascular Surgery has been consulted. Today, the patient feels better. He denies any fevers, chills, headache, sore throat, difficulty swallowing, nausea, vomiting, diarrhea, abdominal pain, symptoms, dysuria, hematuria, difficulty emptying bladder, rash or joint pain. PAST MEDICAL HISTORY: Prostate cancer, diabetes and history of hypertension. SOCIAL HISTORY: Denies smoking, ETOH or illicit drug use. Lives with his , . FAMILY HISTORY: Diabetes. ALLERGIES: No known drug allergies. CURRENT MEDICATIONS: IV ceftriaxone. Other medications reviewed in medication list. PHYSICAL EXAMINATION: VITAL SIGNS: T-max 100, current temperature is 98.3; pulse 68; respiratory rate 18; blood pressure 113/46; oxygen saturation 96% on room air. GENERAL: Alert and oriented x 3, pleasant male, sitting in chair, in no acute distress, at bedside. HEENT: Normocephalic, atraumatic. Anicteric. No thrush. NECK: Supple. No JVD, no lymphadenopathy. LUNGS: Clear bilaterally. No wheezing. HEART: S1, S2. No gallops or murmurs. ABDOMEN: Soft, nontender and nondistended. No rebound, no guarding. EXTREMITIES: No edema, no cyanosis. BACK: Reveals normal curvature. No CVA tenderness. NEUROLOGIC: Alert and oriented x 3. Grossly nonfocal. PSYCHIATRIC: Flat affect, but cooperative. LABORATORY DATA: WBC, 06/24, of 14.6, hemoglobin 10.9, hematocrit 33.9, platelets 238 and neutrophil 93%. Sodium 141, potassium 4.5, chloride 104, bicarbonate 25, BUN 24, creatinine 1.6. Lactate 4.1, repeat is 1.5. Glucose 132. LFTs within normal limits. Total protein 8.5. Albumin 3.9. Troponin normal. CK 90. MICROBIOLOGY: Two out of four blood cultures positive for GPC, ID and THALIA pending. IMAGING: Chest x-ray as above. Carotid Doppler as above. IMPRESSION: 1. Bacteremia, gram-positive cocci in 2 out of 4 bottles prior to admission, ID and THALIA pending, could be contaminant. 2. Leukocytosis. 3. Lactic acidosis. 4. Febrile illness. 5. Dizziness, nausea and vomiting, resolved. 6. Acute kidney injury. 7. History of prostate cancer, status post radiation and hormonal therapy. 8. Anemia. 9. Diabetes mellitus 2. 10. Hyperlipidemia/hypertension. 11. Carotid stenosis, bilateral, and left subclavian arterial stenosis. RECOMMENDATIONS: 1. Continue empiric ceftriaxone. 2. We will dose daptomycin, 1-time dose. 3. Follow up final ID and THALIA of GPC in blood cultures. 4. Follow up labs and cultures. 5. Continue supportive care. 6. Discussed with RN. 7. Discussed with at bedside. Thank you, Dr. Crandall, for consulting Infectious Disease to participate in this patient's care. If you have any questions, do not hesitate to contact. ANABELL STEIN MD DR: [email or web address] JOB#: [id number] / [id number] DEMAR
[2019-06-27 03:51] VITALS: BP 114/42
[2019-06-27 07:00] VITALS: BP 140/48
[2019-06-27] MEDS: INSULIN LISPRO 300 UNITS/3 ML VIAL. SQ SCH ×4 (07:30→21:00)
[2019-06-27] MEDS: IPRATRPIUM/ALBUTEROL 0.5/2.5MG 3 ML NEBU. NEB SCH ×4 (07:58→20:31)
[2019-06-27] MEDS: LACTOBACILLUS RHAMNOSUS GG 1 CAPSULE. PO SCH ×2 (08:08→21:00)
[2019-06-27] MEDS: SODIUM BICARBONATE 650 MG TABLET. PO SCH ×2 (08:08→21:00)
[2019-06-27] MEDS: amLODIPine BESYLATE 5 MG TABLET PO SCH (08:08)
[2019-06-27] MEDS: ASPIRIN CHEWABLE 81 MG TABLET. PO SCH (08:08)
[2019-06-27] MEDS: cefTRIAXone IV Push 1 GM VIAL. IVP SCH (08:09)
--- NOTE | 2019-06-27 10:41 | PDOC ---
Infectious Disease Note Subjective: Subjective pt doing well eager for dc no f/c/n/v/d/abdo pain/gu symptoms ROS: ROS Negative otherwise. Vital Signs: Vital Signs Vital Signs Date Time Temp Pulse Resp B/P (MAP) Pulse Ox O2 Delivery O2 Flow Rate FiO2 06/27/19 08:09 74 140/48 06/27/19 08:00 Room Air 06/27/19 07:59 100 06/27/19 07:00 97.5 17 97.5 Medications: Inpatient Meds: Current Medications Medications (Trade) Dose Ordered Sig/Velia Start Time Stop Time Status Last Admin Dose Admin Albuterol/ Ipratropium (Duoneb) 3 ml RTQID 06/24/19 16:00 06/27/19 07:58 3 ML Amlodipine Besylate (Norvasc) 5 mg DAILY 06/24/19 16:00 06/27/19 08:09 5 MG Aspirin (Children'S Aspirin) 81 mg DAILY 06/24/19 16:00 06/27/19 08:09 81 MG Atorvastatin Calcium (Lipitor) 20 mg QHS 06/24/19 21:00 06/26/19 21:19 20 MG Ceftriaxone Sodium (Rocephin) 1 gm Q24H 06/25/19 09:00 06/27/19 08:09 1 GM Daptomycin 440 mg/ Sodium Chloride 50 ml @ 100 mls/hr ONCE ONCE 06/26/19 12:45 06/26/19 13:14 DC 06/26/19 14:21 100 MLS/HR Dextrose 250 ml PRN Q15MIN PRN 06/24/19 15:45 Dextrose (Dextrose 50%-Water Syringe) 12.5 gm PRN Q15MIN PRN 06/24/19 15:45 Fentanyl Citrate (Fentanyl 2ml Vial) 50 mcg PRN Q1HR PRN 06/24/19 12:00 06/25/19 11:59 DC Insulin Human Lispro (HumaLOG) 0-5 UNITS TIDACHC 06/24/19 16:30 Lactobacillus Rhamnosus (Culturelle) 1 cap BID 06/26/19 21:00 06/27/19 08:09 1 CAP Non-Formulary Medication (Ipratropium/ Albuterol Sulfate (Combivent Respimat Inhal)) 1 inh QID 06/24/19 17:00 UNV Ondansetron HCl (Zofran) 4 mg PRN Q8HRS PRN 06/24/19 12:00 06/25/19 11:59 DC Prochlorperazine Edisylate (Compazine) 10 mg 1X ONCE 06/24/19 09:15 06/24/19 09:16 DC 06/24/19 09:36 10 MG Sodium Bicarbonate (Sodium Bicarbonate) 1,300 mg BID 06/24/19 21:00 06/27/19 08:09 1,300 MG Sodium Chloride 1,000 ml @ 1,000 mls/hr 1X ONCE 06/24/19 10:45 06/24/19 11:44 DC 06/24/19 10:49 1,000 MLS/HR Labs: Lab Laboratory Tests Test 06/26/19 12:14 06/26/19 16:54 06/26/19 19:27 06/27/19 07:37 Glucose (Fingerstick) 110 mg/dL (70-99) 121 mg/dL (70-99) 143 mg/dL (70-99) 114 mg/dL (70-99) Objective: Assessment: 1. Bacteremia, gram-positive cocci in 2 out of 4 bottles prior to admission, ID and THALIA pending, could be contaminant. 2. Leukocytosis. 3. Lactic acidosis. 4. Febrile illness. 5. Dizziness, nausea and vomiting, resolved. 6. Acute kidney injury. 7. History of prostate cancer, status post radiation and hormonal therapy. 8. Anemia. 9. Diabetes mellitus 2. 10. Hyperlipidemia/hypertension. 11. Carotid stenosis, bilateral, and left subclavian arterial stenosis. Plan: Plan of Care 1. Continue empiric ceftriaxone. 2. Continue daptomycin 3. Follow up final ID and THALIA of GPC in blood cultures.,once available should be ready for dc 4. Follow up labs and cultures. 5. Continue supportive care. Discussed with RN. ANABELL STEIN MD Jun 27, 2019 10:41
[2019-06-27 10:52] VITALS: BP 138/46
--- NOTE | 2019-06-27 10:52 | PDOC ---
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 -PLAN continued risk factor modification to include good diabetes control, hypertensive management, hyperlipidemia management Gait instability - PT/OT evaluate sepsis, UTI Acute kidney injury - vasomotor nephropathy. History of prostate cancer status post radiation and hormonal therapy last couple of years ago - has good f/u Anemia - DM2 - place on low sliding scale HLD - cont statin HTN - Continue empiric ceftriaxone. Continue daptomycin NEEDS final ID and THALIA of GPC in blood cultures History of Present Illness History of Present Illness consult vacular, carotid and other stenosis, Pt and OT, OK cx pending, cont IV abx for UTI, 10/20 blood cx pos, poss contam, vitals much improved from yesterday cont current 39 MIN PT EXAM, CHART REVIEW, > 50% OF TIME SPENT WITH EXAM, CHART REVIEW, PT CARE COORDINATION Vitals Vitals Vital Signs Date Time Temp Pulse Resp B/P (MAP) Pulse Ox O2 Delivery O2 Flow Rate FiO2 06/27/19 08:09 74 140/48 06/27/19 08:00 Room Air 06/27/19 07:59 100 06/27/19 07:00 97.5 17 97.5 Physical Exam General: Alert, Cooperative, No acute distress Lungs: Clear Abdomen: Normal bowel sounds, Soft, No hepatosplenomegaly, No masses, Other (epigastric tenderness) Extremities: No clubbing, No cyanosis, No edema, Normal pulses, No tenderness/swelling Skin: No rashes, No breakdown, No significant lesion Labs LABS Laboratory Tests Test 06/26/19 12:14 06/26/19 16:54 06/26/19 19:27 06/27/19 07:37 Glucose (Fingerstick) 110 mg/dL (70-99) 121 mg/dL (70-99) 143 mg/dL (70-99) 114 mg/dL (70-99) Assessment and Plan Assessmemt and Plan Problems Medical Problems: (1) EARNESTINE (acute kidney injury) Status: Acute (2) Anemia Status: Chronic (3) DM2 (diabetes mellitus, type 2) Status: Chronic (4) HLD (hyperlipidemia) Status: Chronic (5) HTN (hypertension) Status: Chronic (6) Sepsis Status: Acute (7) Urinary tract infection Status: Acute Comment Review of Relevant I have reviewed the following items dale (where applicable) has been applied. Labs Laboratory Tests Test 06/25/19 16:40 06/25/19 19:30 06/26/19 07:12 06/26/19 12:14 Glucose (Fingerstick) 116 mg/dL (70-99) 143 mg/dL (70-99) 114 mg/dL (70-99) 110 mg/dL (70-99) Test 06/26/19 16:54 06/26/19 19:27 06/27/19 07:37 Glucose (Fingerstick) 121 mg/dL (70-99) 143 mg/dL (70-99) 114 mg/dL (70-99) Laboratory Tests Test 06/26/19 12:14 06/26/19 16:54 06/26/19 19:27 06/27/19 07:37 Glucose (Fingerstick) 110 mg/dL (70-99) 121 mg/dL (70-99) 143 mg/dL (70-99) 114 mg/dL (70-99) Microbiology 06/24/19 Urine Culture - Final, Complete 06/24/19 Urine Culture Result 1 (THALIA) - Final, Complete 06/24/19 Blood Culture - Preliminary, Resulted NO GROWTH AFTER 2 DAYS Medications Current Medications Prochlorperazine Edisylate (Compazine) 10 mg 1X ONCE IV Last administered on 06/24/19at 09:36; Start 06/24/19 at 09:15; Stop 06/24/19 at 09:16; Status DC Sodium Chloride 500 ml @ 500 mls/hr 1X ONCE IV Last administered on 06/24/19at 09:36; Start 06/24/19 at 09:15; Stop 06/24/19 at 10:14; Status DC Ceftriaxone Sodium (Rocephin) 1 gm 1X ONCE IVP Last administered on 06/24/19at 10:49; Start 06/24/19 at 10:45; Stop 06/24/19 at 10:46; Status DC Sodium Chloride 1,000 ml @ 1,000 mls/hr 1X ONCE IV Last administered on 06/24/19at 10:49; Start 06/24/19 at 10:45; Stop 06/24/19 at 11:44; Status DC Sodium Chloride 1,000 ml @ 1,000 mls/hr 1X ONCE IV Last administered on 06/24/19at 10:49; Start 06/24/19 at 10:45; Stop 06/24/19 at 11:44; Status DC Ondansetron HCl (Zofran) 4 mg PRN Q8HRS PRN IV NAUSEA/VOMITING; Start 06/24/19 at 12:00; Stop 06/25/19 at 11:59; Status DC Fentanyl Citrate (Fentanyl 2ml Vial) 50 mcg PRN Q1HR PRN IV PAIN; Start 06/24/19 at 12:00; Stop 06/25/19 at 11:59; Status DC Amlodipine Besylate (Norvasc) 5 mg DAILY PO Last administered on 06/27/19at 08:09; Start 06/24/19 at 16:00 Aspirin (Children'S Aspirin) 81 mg DAILY PO Last administered on 06/27/19at 08:09; Start 06/24/19 at 16:00 Atorvastatin Calcium (Lipitor) 20 mg QHS PO Last administered on 06/26/19at 21:19; Start 06/24/19 at 21:00 Sodium Bicarbonate (Sodium Bicarbonate) 1,300 mg BID PO Last administered on 06/27/19at 08:09; Start 06/24/19 at 21:00 Non-Formulary Medication (Ipratropium/ Albuterol Sulfate (Combivent Respimat Inhal)) 1 inh QID IH ; Start 06/24/19 at 17:00; Status UNV Insulin Human Lispro (HumaLOG) 0-5 UNITS TIDACHC SQ ; Start 06/24/19 at 16:30 Dextrose (Dextrose 50%-Water Syringe) 12.5 gm PRN Q15MIN PRN IV SEE COMMENTS; Start 06/24/19 at 15:45 Dextrose 250 ml PRN Q15MIN PRN IV SEE COMMENTS; Start 06/24/19 at 15:45 Albuterol/ Ipratropium (Duoneb) 3 ml RTQID NEB Last administered on 06/27/19at 07:58; Start 06/24/19 at 16:00 Ceftriaxone Sodium (Rocephin) 1 gm Q24H IVP Last administered on 06/27/19at 08:09; Start 06/25/19 at 09:00 Daptomycin 440 mg/ Sodium Chloride 50 ml @ 100 mls/hr ONCE IV ; Start 06/26/19 at 12:00; Status Cancel Daptomycin 440 mg/ Sodium Chloride 50 ml @ 100 mls/hr ONCE ONCE IV Last administered on 06/26/19at 14:21; Start 06/26/19 at 12:45; Stop 06/26/19 at 13:14; Status DC Lactobacillus Rhamnosus (Culturelle) 1 cap BID PO Last administered on 06/27/19at 08:09; Start 06/26/19 at 21:00 Daptomycin 440 mg/ Sodium Chloride 50 ml @ 100 mls/hr Q24H IV ; Start 06/27/19 at 11:30 Active Scripts Active Combivent Respimat Inhal (Ipratropium/Albuterol Sulfate) 4 Gm Aer.w.adap 1 Inh IH QID Levaquin (Levofloxacin) 250 Mg Tablet 250 Mg PO DAILY Sodium Bicarbonate 650 Mg Tablet 1,300 Mg PO BID Amlodipine Besylate 5 Mg Tablet 5 Mg PO DAILY Reported Ddavp (Desmopressin Acetate) 0.2 Mg Tablet 0.1 Mg PO QHS Aspirin 81 Mg Tab.chew 1 Tab PO DAILY Losartan-Hctz 100-12.5 Mg Tab (Losartan/Hydrochlorothiazide) 1 Each Tablet 1 Tab PO DAILY Atorvastatin Calcium 20 Mg Tablet 20 Mg PO DAILY Metformin Hcl Er (Metformin Hcl) 500 Mg Tab.er.24h 500 Mg PO DAILYWBKFT Unable To Obtain Meds From Prior To Admit (Info) Each 1 Each Vitals/I & O Vital Sign - Last 24 Hours 06/26/19 06/26/19 06/26/19 06/26/19 11:00 11:20 15:12 15:26 Temp 97.6 98.0 97.6 98.0 Pulse 70 77 Resp 20 18 B/P (MAP) 114/42 (66) 126/48 (74) Pulse Ox 99 100 95 O2 Delivery Room Air Room Air Room Air Room Air 06/26/19 06/26/19 06/26/19 06/26/19 19:37 19:39 20:00 23:12 Temp 97.4 97.9 97.4 97.9 Pulse 76 79 Resp 20 18 B/P (MAP) 138/41 (73) 135/44 (74) Pulse Ox 99 100 99 O2 Delivery Room Air Room Air Room Air Room Air 06/27/19 06/27/19 06/27/19 06/27/19 03:51 07:00 07:59 08:00 Temp 98.0 97.5 98.0 97.5 Pulse 73 74 Resp 18 17 B/P (MAP) 114/42 (66) 140/48 (78) Pulse Ox 94 99 100 O2 Delivery Room Air Room Air Room Air Room Air 06/27/19 08:09 Pulse 74 B/P (MAP) 140/48 Intake and Output 06/26/19 06/26/19 06/27/19 15:00 23:00 07:00 Intake Total 400 ml 300 ml 250 ml Balance 400 ml 300 ml 250 ml RONEL HUNT MD Jun 27, 2019 10:52
[2019-06-27] MEDS: DAPTOmycin (GENERIC) IVPB 440 MG in IV NORMAL SALINE 50ML 50 ML IV SCH (11:41)
[2019-06-27 15:00] VITALS: BP 123/44
--- NOTE | 2019-06-27 15:54 | PDOC ---
Provider Note Provider Note Vascular S: Patient seen and examined in room. No new signs or symptoms related to dizziness. No new signs of her symptoms of stroke or TIA. Dr. Laird present for examination. O: Awake and alert Vital signs stable, afebrile Heart rate regular, palpable bilateral radial pulses. Nonlabored respirations [employer] equal, speech clear, moves all extremities without difficulty. A/P: 84 year old male admitted with dizziness, sepsis with urinary tract infecti on with bilateral carotid artery stenosis and left subclavian artery stenosis. By physical exam he has strongly palpable left radial pulse. No new symptoms or TIA or strokelike symptoms. It is unlikely that his carotid or subclavian stenosis is contributing to his current symptoms. -Recommend continued risk factor modification to include good diabetes control, hypertensive management, hyperlipidemia management and daily aspirin. -Recommend follow-up carotid ultrasound in 6 months. -Dr. Laird has reviewed my history and physical examination from previous day and reviewed images and agrees with current plan. -Will sign off. RADHA GIRALDO APRN Jun 27, 2019 15:54
[2019-06-27 19:12] VITALS: BP 150/49
[2019-06-27] MEDS: ATORVASTATIN CALCIUM 20 MG TABLET PO SCH (21:00)
[2019-06-27 23:46] VITALS: BP 120/42
[2019-06-28] VITALS (7 sets, daily range): BP systolic 107–140; BP diastolic 44–88
[2019-06-28 03:53] LABS: BASO # 0.1 x10^3/uL (0.0-0.2); BASO % 1 % (0-3); EOS # 0.3 x10^3/uL (0.0-0.7); EOS % 5 % (0-3); HEMOGLOBIN 9.1 g/dL (13.0-17.5); LYMPH # 1.2 x10^3/uL (1.0-4.8); LYMPH % 18 % (24-48); MEAN CORPUSCULAR HEMOGLOBIN 29 pg (25-35); MEAN CORPUSCULAR HGB CONC 34 g/dL (31-37); MEAN CORPUSCULAR VOLUME 85 fL (79-100); MONO # 0.4 x10^3/uL (0.0-1.1); MONO % 7 % (0-9); NEUT # 4.5 x10^3/uL (1.8-7.7); NEUT % 70 % (31-73); PLATELET COUNT 261 x10^3/uL (140-400); RED BLOOD COUNT 3.17 x10^6/uL (4.30-5.70); WHITE BLOOD COUNT 6.5 x10^3/uL (4.0-11.0)
[2019-06-28 04:06] LABS: ALBUMIN 3.1 g/dL (3.4-5.0); ALBUMIN/GLOBULIN RATIO 0.8 (1.0-1.7); CALCIUM 8.1 mg/dL (8.5-10.1); CREATININE 1.2 mg/dL (0.7-1.3); GFR 69.6; POTASSIUM 3.9 mmol/L (3.5-5.1); TOTAL BILIRUBIN 0.3 mg/dL (0.2-1.0); TOTAL PROTEIN 6.8 g/dL (6.4-8.2)
[2019-06-28] MEDS: IPRATRPIUM/ALBUTEROL 0.5/2.5MG 3 ML NEBU. NEB SCH ×4 (07:23→20:32)
[2019-06-28] MEDS: INSULIN LISPRO 300 UNITS/3 ML VIAL. SQ SCH ×4 (07:30→21:37)
--- NOTE | 2019-06-28 09:13 | PDOC ---
Infectious Disease Note Subjective: Subjective pt doing well eager for dc no f/c/n/v/d/abdo pain/gu symptoms ROS: ROS Negative otherwise. Vital Signs: Vital Signs Vital Signs Date Time Temp Pulse Resp B/P (MAP) Pulse Ox O2 Delivery O2 Flow Rate FiO2 06/28/19 07:46 98.2 67 18 123/48 (73) 98 Room Air 98.2 Medications: Inpatient Meds: Current Medications Medications (Trade) Dose Ordered Sig/Velia Start Time Stop Time Status Last Admin Dose Admin Albuterol/ Ipratropium (Duoneb) 3 ml RTQID 06/24/19 16:00 06/28/19 07:23 3 ML Amlodipine Besylate (Norvasc) 5 mg DAILY 06/24/19 16:00 06/27/19 08:09 5 MG Aspirin (Children'S Aspirin) 81 mg DAILY 06/24/19 16:00 06/27/19 08:09 81 MG Atorvastatin Calcium (Lipitor) 20 mg QHS 06/24/19 21:00 06/27/19 21:00 20 MG Ceftriaxone Sodium (Rocephin) 1 gm Q24H 06/25/19 09:00 06/27/19 08:09 1 GM Daptomycin 440 mg/ Sodium Chloride 50 ml @ 100 mls/hr Q24H 06/27/19 11:30 06/27/19 11:41 100 MLS/HR Dextrose 250 ml PRN Q15MIN PRN 06/24/19 15:45 Dextrose (Dextrose 50%-Water Syringe) 12.5 gm PRN Q15MIN PRN 06/24/19 15:45 Fentanyl Citrate (Fentanyl 2ml Vial) 50 mcg PRN Q1HR PRN 06/24/19 12:00 06/25/19 11:59 DC Insulin Human Lispro (HumaLOG) 0-5 UNITS TIDACHC 06/24/19 16:30 Lactobacillus Rhamnosus (Culturelle) 1 cap BID 06/26/19 21:00 06/27/19 21:00 1 CAP Non-Formulary Medication (Ipratropium/ Albuterol Sulfate (Combivent Respimat Inhal)) 1 inh QID 06/24/19 17:00 UNV Ondansetron HCl (Zofran) 4 mg PRN Q8HRS PRN 06/24/19 12:00 06/25/19 11:59 DC Prochlorperazine Edisylate (Compazine) 10 mg 1X ONCE 06/24/19 09:15 06/24/19 09:16 DC 06/24/19 09:36 10 MG Sodium Bicarbonate (Sodium Bicarbonate) 1,300 mg BID 06/24/19 21:00 06/27/19 21:00 1,300 MG Sodium Chloride 1,000 ml @ 1,000 mls/hr 1X ONCE 06/24/19 10:45 06/24/19 11:44 DC 06/24/19 10:49 1,000 MLS/HR Labs: Lab Laboratory Tests Test 06/27/19 11:36 06/27/19 16:41 06/27/19 20:50 06/28/19 02:50 Glucose (Fingerstick) 136 mg/dL (70-99) 107 mg/dL (70-99) 116 mg/dL (70-99) White Blood Count 6.5 x10^3/uL (4.0-11.0) Red Blood Count 3.17 x10^6/uL (4.30-5.70) Hemoglobin 9.1 g/dL (13.0-17.5) Hematocrit 27.0 % (39.0-53.0) Mean Corpuscular Volume 85 fL (79-100) Mean Corpuscular Hemoglobin 29 pg (25-35) Mean Corpuscular Hemoglobin Concent 34 g/dL (31-37) Red Cell Distribution Width 15.0 % (11.5-14.5) Platelet Count 261 x10^3/uL (140-400) Neutrophils (%) (Auto) 70 % (31-73) Lymphocytes (%) (Auto) 18 % (24-48) Monocytes (%) (Auto) 7 % (0-9) Eosinophils (%) (Auto) 5 % (0-3) Basophils (%) (Auto) 1 % (0-3) Neutrophils # (Auto) 4.5 x10^3/uL (1.8-7.7) Lymphocytes # (Auto) 1.2 x10^3/uL (1.0-4.8) Monocytes # (Auto) 0.4 x10^3/uL (0.0-1.1) Eosinophils # (Auto) 0.3 x10^3/uL (0.0-0.7) Basophils # (Auto) 0.1 x10^3/uL (0.0-0.2) Sodium Level 145 mmol/L (136-145) Potassium Level 3.9 mmol/L (3.5-5.1) Chloride Level 108 mmol/L (98-107) Carbon Dioxide Level 26 mmol/L (21-32) Anion Gap 11 (6-14) Blood Urea Nitrogen 12 mg/dL (8-26) Creatinine 1.2 mg/dL (0.7-1.3) Estimated GFR (Cockcroft-Gault) 69.6 BUN/Creatinine Ratio 10 (6-20) Glucose Level 94 mg/dL (70-99) Calcium Level 8.1 mg/dL (8.5-10.1) Total Bilirubin 0.3 mg/dL (0.2-1.0) Aspartate Amino Transf (AST/SGOT) 21 U/L (15-37) Alanine Aminotransferase (ALT/SGPT) 12 U/L (16-63) Alkaline Phosphatase 51 U/L (46-116) Total Protein 6.8 g/dL (6.4-8.2) Albumin 3.1 g/dL (3.4-5.0) Albumin/Globulin Ratio 0.8 (1.0-1.7) Test 06/28/19 07:23 Glucose (Fingerstick) 89 mg/dL (70-99) Objective: Assessment: 1. Bacteremia,GPCs ,in Clusters STAPH ;2 out of 4 bottles prior to admission, ID and THALIA still pending, could be contaminant. 2. Leukocytosis. 3. Lactic acidosis. 4. Febrile illness. 5. Dizziness, nausea and vomiting, resolved. 6. Acute kidney injury. 7. History of prostate cancer, status post radiation and hormonal therapy. 8. Anemia. 9. Diabetes mellitus 2. 10. Hyperlipidemia/hypertension. 11. Carotid stenosis, bilateral, and left subclavian arterial stenosis. Plan: Plan of Care 1. Continue empiric ceftriaxone. 2. Continue daptomycin 3. Follow up final ID and THALIA of GPCs in blood cultures,once available should be ready for dc STILL PENDING PER MY D/W MICRO TODAY 4. Follow up labs and cultures. 5. Continue supportive care. Discussed withwife and RN. ANABELL STEIN MD Jun 28, 2019 09:13
[2019-06-28] MEDS: SODIUM BICARBONATE 650 MG TABLET. PO SCH ×2 (09:35→21:37)
[2019-06-28] MEDS: ASPIRIN CHEWABLE 81 MG TABLET. PO SCH (09:35)
[2019-06-28] MEDS: amLODIPine BESYLATE 5 MG TABLET PO SCH (09:35)
[2019-06-28] MEDS: LACTOBACILLUS RHAMNOSUS GG 1 CAPSULE. PO SCH ×2 (09:35→21:37)
[2019-06-28] MEDS: cefTRIAXone IV Push 1 GM VIAL. IVP SCH (09:36)
--- NOTE | 2019-06-28 11:25 | PDOC ---
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 -PLAN continued risk factor modification to include good diabetes control, hypertensive management, hyperlipidemia management Gait instability - PT/OT evaluate sepsis, UTI Acute kidney injury - vasomotor nephropathy. History of prostate cancer status post radiation and hormonal therapy last couple of years ago - has good f/u Anemia - DM2 - place on low sliding scale HLD - cont statin HTN - Continue empiric ceftriaxone. Continue daptomycin NEEDS final ID and THALIA of GPC in blood cultures 28 min pt exam,chart review, > 50% of time spent with exam, chart review pt care coordination History of Present Illness History of Present Illness consult vacular, carotid and other stenosis, Pt and OT, OK cx pending, cont IV abx for UTI, / blood cx pos, poss contam, vitals much improved from yesterday cont current 39 MIN PT EXAM, CHART REVIEW, > 50% OF TIME SPENT WITH EXAM, CHART REVIEW, PT CARE COORDINATION Vitals Vitals Vital Signs Date Time Temp Pulse Resp B/P (MAP) Pulse Ox O2 Delivery O2 Flow Rate FiO2 06/28/19 09:36 67 123/48 06/28/19 07:46 98.2 18 98 Room Air 98.2 Physical Exam General: Alert, Cooperative, No acute distress Lungs: Clear Abdomen: Normal bowel sounds, Soft, No hepatosplenomegaly, No masses, Other (epigastric tenderness) Extremities: No clubbing, No cyanosis, No edema, Normal pulses, No tenderness/swelling Skin: No rashes, No breakdown, No significant lesion Labs LABS Laboratory Tests Test 06/27/19 11:36 06/27/19 16:41 06/27/19 20:50 06/28/19 02:50 Glucose (Fingerstick) 136 mg/dL (70-99) 107 mg/dL (70-99) 116 mg/dL (70-99) White Blood Count 6.5 x10^3/uL (4.0-11.0) Red Blood Count 3.17 x10^6/uL (4.30-5.70) Hemoglobin 9.1 g/dL (13.0-17.5) Hematocrit 27.0 % (39.0-53.0) Mean Corpuscular Volume 85 fL (79-100) Mean Corpuscular Hemoglobin 29 pg (25-35) Mean Corpuscular Hemoglobin Concent 34 g/dL (31-37) Red Cell Distribution Width 15.0 % (11.5-14.5) Platelet Count 261 x10^3/uL (140-400) Neutrophils (%) (Auto) 70 % (31-73) Lymphocytes (%) (Auto) 18 % (24-48) Monocytes (%) (Auto) 7 % (0-9) Eosinophils (%) (Auto) 5 % (0-3) Basophils (%) (Auto) 1 % (0-3) Neutrophils # (Auto) 4.5 x10^3/uL (1.8-7.7) Lymphocytes # (Auto) 1.2 x10^3/uL (1.0-4.8) Monocytes # (Auto) 0.4 x10^3/uL (0.0-1.1) Eosinophils # (Auto) 0.3 x10^3/uL (0.0-0.7) Basophils # (Auto) 0.1 x10^3/uL (0.0-0.2) Sodium Level 145 mmol/L (136-145) Potassium Level 3.9 mmol/L (3.5-5.1) Chloride Level 108 mmol/L (98-107) Carbon Dioxide Level 26 mmol/L (21-32) Anion Gap 11 (6-14) Blood Urea Nitrogen 12 mg/dL (8-26) Creatinine 1.2 mg/dL (0.7-1.3) Estimated GFR (Cockcroft-Gault) 69.6 BUN/Creatinine Ratio 10 (6-20) Glucose Level 94 mg/dL (70-99) Calcium Level 8.1 mg/dL (8.5-10.1) Total Bilirubin 0.3 mg/dL (0.2-1.0) Aspartate Amino Transf (AST/SGOT) 21 U/L (15-37) Alanine Aminotransferase (ALT/SGPT) 12 U/L (16-63) Alkaline Phosphatase 51 U/L (46-116) Total Protein 6.8 g/dL (6.4-8.2) Albumin 3.1 g/dL (3.4-5.0) Albumin/Globulin Ratio 0.8 (1.0-1.7) Test 06/28/19 07:23 Glucose (Fingerstick) 89 mg/dL (70-99) Assessment and Plan Assessmemt and Plan Problems Medical Problems: (1) EARNESTINE (acute kidney injury) Status: Acute (2) Anemia Status: Chronic (3) DM2 (diabetes mellitus, type 2) Status: Chronic (4) HLD (hyperlipidemia) Status: Chronic (5) HTN (hypertension) Status: Chronic (6) Sepsis Status: Acute (7) Urinary tract infection Status: Acute Comment Review of Relevant I have reviewed the following items dale (where applicable) has been applied. Labs Laboratory Tests Test 06/26/19 12:14 06/26/19 16:54 06/26/19 19:27 06/27/19 07:37 Glucose (Fingerstick) 110 mg/dL (70-99) 121 mg/dL (70-99) 143 mg/dL (70-99) 114 mg/dL (70-99) Test 06/27/19 11:36 06/27/19 16:41 06/27/19 20:50 06/28/19 02:50 Glucose (Fingerstick) 136 mg/dL (70-99) 107 mg/dL (70-99) 116 mg/dL (70-99) White Blood Count 6.5 x10^3/uL (4.0-11.0) Red Blood Count 3.17 x10^6/uL (4.30-5.70) Hemoglobin 9.1 g/dL (13.0-17.5) Hematocrit 27.0 % (39.0-53.0) Mean Corpuscular Volume 85 fL (79-100) Mean Corpuscular Hemoglobin 29 pg (25-35) Mean Corpuscular Hemoglobin Concent 34 g/dL (31-37) Red Cell Distribution Width 15.0 % (11.5-14.5) Platelet Count 261 x10^3/uL (140-400) Neutrophils (%) (Auto) 70 % (31-73) Lymphocytes (%) (Auto) 18 % (24-48) Monocytes (%) (Auto) 7 % (0-9) Eosinophils (%) (Auto) 5 % (0-3) Basophils (%) (Auto) 1 % (0-3) Neutrophils # (Auto) 4.5 x10^3/uL (1.8-7.7) Lymphocytes # (Auto) 1.2 x10^3/uL (1.0-4.8) Monocytes # (Auto) 0.4 x10^3/uL (0.0-1.1) Eosinophils # (Auto) 0.3 x10^3/uL (0.0-0.7) Basophils # (Auto) 0.1 x10^3/uL (0.0-0.2) Sodium Level 145 mmol/L (136-145) Potassium Level 3.9 mmol/L (3.5-5.1) Chloride Level 108 mmol/L (98-107) Carbon Dioxide Level 26 mmol/L (21-32) Anion Gap 11 (6-14) Blood Urea Nitrogen 12 mg/dL (8-26) Creatinine 1.2 mg/dL (0.7-1.3) Estimated GFR (Cockcroft-Gault) 69.6 BUN/Creatinine Ratio 10 (6-20) Glucose Level 94 mg/dL (70-99) Calcium Level 8.1 mg/dL (8.5-10.1) Total Bilirubin 0.3 mg/dL (0.2-1.0) Aspartate Amino Transf (AST/SGOT) 21 U/L (15-37) Alanine Aminotransferase (ALT/SGPT) 12 U/L (16-63) Alkaline Phosphatase 51 U/L (46-116) Total Protein 6.8 g/dL (6.4-8.2) Albumin 3.1 g/dL (3.4-5.0) Albumin/Globulin Ratio 0.8 (1.0-1.7) Test 06/28/19 07:23 Glucose (Fingerstick) 89 mg/dL (70-99) Laboratory Tests Test 06/27/19 11:36 06/27/19 16:41 06/27/19 20:50 06/28/19 02:50 Glucose (Fingerstick) 136 mg/dL (70-99) 107 mg/dL (70-99) 116 mg/dL (70-99) White Blood Count 6.5 x10^3/uL (4.0-11.0) Red Blood Count 3.17 x10^6/uL (4.30-5.70) Hemoglobin 9.1 g/dL (13.0-17.5) Hematocrit 27.0 % (39.0-53.0) Mean Corpuscular Volume 85 fL (79-100) Mean Corpuscular Hemoglobin 29 pg (25-35) Mean Corpuscular Hemoglobin Concent 34 g/dL (31-37) Red Cell Distribution Width 15.0 % (11.5-14.5) Platelet Count 261 x10^3/uL (140-400) Neutrophils (%) (Auto) 70 % (31-73) Lymphocytes (%) (Auto) 18 % (24-48) Monocytes (%) (Auto) 7 % (0-9) Eosinophils (%) (Auto) 5 % (0-3) Basophils (%) (Auto) 1 % (0-3) Neutrophils # (Auto) 4.5 x10^3/uL (1.8-7.7) Lymphocytes # (Auto) 1.2 x10^3/uL (1.0-4.8) Monocytes # (Auto) 0.4 x10^3/uL (0.0-1.1) Eosinophils # (Auto) 0.3 x10^3/uL (0.0-0.7) Basophils # (Auto) 0.1 x10^3/uL (0.0-0.2) Sodium Level 145 mmol/L (136-145) Potassium Level 3.9 mmol/L (3.5-5.1) Chloride Level 108 mmol/L (98-107) Carbon Dioxide Level 26 mmol/L (21-32) Anion Gap 11 (6-14) Blood Urea Nitrogen 12 mg/dL (8-26) Creatinine 1.2 mg/dL (0.7-1.3) Estimated GFR (Cockcroft-Gault) 69.6 BUN/Creatinine Ratio 10 (6-20) Glucose Level 94 mg/dL (70-99) Calcium Level 8.1 mg/dL (8.5-10.1) Total Bilirubin 0.3 mg/dL (0.2-1.0) Aspartate Amino Transf (AST/SGOT) 21 U/L (15-37) Alanine Aminotransferase (ALT/SGPT) 12 U/L (16-63) Alkaline Phosphatase 51 U/L (46-116) Total Protein 6.8 g/dL (6.4-8.2) Albumin 3.1 g/dL (3.4-5.0) Albumin/Globulin Ratio 0.8 (1.0-1.7) Test 06/28/19 07:23 Glucose (Fingerstick) 89 mg/dL (70-99) Microbiology 06/24/19 Urine Culture - Final, Complete 06/24/19 Urine Culture Result 1 (THALIA) - Final, Complete 06/24/19 Blood Culture - Preliminary, Resulted NO GROWTH AFTER 3 DAYS Medications Current Medications Prochlorperazine Edisylate (Compazine) 10 mg 1X ONCE IV Last administered on 06/24/19at 09:36; Start 06/24/19 at 09:15; Stop 06/24/19 at 09:16; Status DC Sodium Chloride 500 ml @ 500 mls/hr 1X ONCE IV Last administered on 06/24/19at 09:36; Start 06/24/19 at 09:15; Stop 06/24/19 at 10:14; Status DC Ceftriaxone Sodium (Rocephin) 1 gm 1X ONCE IVP Last administered on 06/24/19at 10:49; Start 06/24/19 at 10:45; Stop 06/24/19 at 10:46; Status DC Sodium Chloride 1,000 ml @ 1,000 mls/hr 1X ONCE IV Last administered on 06/24/19at 10:49; Start 06/24/19 at 10:45; Stop 06/24/19 at 11:44; Status DC Sodium Chloride 1,000 ml @ 1,000 mls/hr 1X ONCE IV Last administered on 06/24/19at 10:49; Start 06/24/19 at 10:45; Stop 06/24/19 at 11:44; Status DC Ondansetron HCl (Zofran) 4 mg PRN Q8HRS PRN IV NAUSEA/VOMITING; Start 06/24/19 at 12:00; Stop 06/25/19 at 11:59; Status DC Fentanyl Citrate (Fentanyl 2ml Vial) 50 mcg PRN Q1HR PRN IV PAIN; Start 06/24/19 at 12:00; Stop 06/25/19 at 11:59; Status DC Amlodipine Besylate (Norvasc) 5 mg DAILY PO Last administered on 06/28/19at 09:36; Start 06/24/19 at 16:00 Aspirin (Children'S Aspirin) 81 mg DAILY PO Last administered on 06/28/19 09:36; Start 06/24/19 at 16:00 Atorvastatin Calcium (Lipitor) 20 mg QHS PO Last administered on 06/27/19at 21:00; Start 06/24/19 at 21:00 Sodium Bicarbonate (Sodium Bicarbonate) 1,300 mg BID PO Last administered on 06/28/19 09:36; Start 06/24/19 at 21:00 Non-Formulary Medication (Ipratropium/ Albuterol Sulfate (Combivent Respimat Inhal)) 1 inh QID IH ; Start 06/24/19 at 17:00; Status UNV Insulin Human Lispro (HumaLOG) 0-5 UNITS TIDACHC SQ ; Start 06/24/19 at 16:30 Dextrose (Dextrose 50%-Water Syringe) 12.5 gm PRN Q15MIN PRN IV SEE COMMENTS; Start 06/24/19 at 15:45 Dextrose 250 ml PRN Q15MIN PRN IV SEE COMMENTS; Start 06/24/19 at 15:45 Albuterol/ Ipratropium (Duoneb) 3 ml RTQID NEB Last administered on 06/28/19at 07:23; Start 06/24/19 at 16:00 Ceftriaxone Sodium (Rocephin) 1 gm Q24H IVP Last administered on 06/28/19at 09:36; Start 06/25/19 at 09:00 Daptomycin 440 mg/ Sodium Chloride 50 ml @ 100 mls/hr ONCE IV ; Start 06/26/19 at 12:00; Status Cancel Daptomycin 440 mg/ Sodium Chloride 50 ml @ 100 mls/hr ONCE ONCE IV Last administered on 06/26/19at 14:21; Start 06/26/19 at 12:45; Stop 06/26/19 at 13:14; Status DC Lactobacillus Rhamnosus (Culturelle) 1 cap BID PO Last administered on 06/28/19at 09:36; Start 06/26/19 at 21:00 Daptomycin 440 mg/ Sodium Chloride 50 ml @ 100 mls/hr Q24H IV Last administered on 06/27/19at 11:41; Start 06/27/19 at 11:30 Active Scripts Active Combivent Respimat Inhal (Ipratropium/Albuterol Sulfate) 4 Gm Aer.w.adap 1 Inh IH QID Levaquin (Levofloxacin) 250 Mg Tablet 250 Mg PO DAILY Sodium Bicarbonate 650 Mg Tablet 1,300 Mg PO BID Amlodipine Besylate 5 Mg Tablet 5 Mg PO DAILY Reported Ddavp (Desmopressin Acetate) 0.2 Mg Tablet 0.1 Mg PO QHS Aspirin 81 Mg Tab.chew 1 Tab PO DAILY Losartan-Hctz 100-12.5 Mg Tab (Losartan/Hydrochlorothiazide) 1 Each Tablet 1 Tab PO DAILY Atorvastatin Calcium 20 Mg Tablet 20 Mg PO DAILY Metformin Hcl Er (Metformin Hcl) 500 Mg Tab.er.24h 500 Mg PO DAILYWBKFT Unable To Obtain Meds From Prior To Admit (Info) Each 1 Each Vitals/I & O Vital Sign - Last 24 Hours 06/27/19 06/27/19 06/27/19 06/27/19 12:18 15:00 16:41 19:12 Temp 98.5 97.7 98.5 97.7 Pulse 75 82 Resp 17 18 B/P (MAP) 123/44 (70) 150/49 (82) Pulse Ox 99 99 O2 Delivery Room Air Room Air Room Air Room Air 06/27/19 06/27/19 06/27/19 06/28/19 20:00 20:32 23:46 03:19 Temp 98.2 98.6 98.2 98.6 Pulse 73 68 Resp 18 18 B/P (MAP) 120/42 (68) 111/51 (71) Pulse Ox 100 95 97 O2 Delivery Room Air Room Air Room Air Room Air 06/28/19 06/28/19 06/28/19 07:23 07:46 09:36 Temp 98.2 98.2 Pulse 67 67 Resp 18 B/P (MAP) 123/48 (73) 123/48 Pulse Ox 98 98 O2 Delivery Room Air Room Air Intake and Output 06/27/19 06/27/19 06/28/19 14:59 22:59 06:59 Intake Total 300 ml 480 ml Output Total 200 ml Balance 300 ml 280 ml RONEL HUNT MD Jun 28, 2019 11:25
[2019-06-28] MEDS: DAPTOmycin (GENERIC) IVPB 440 MG in IV NORMAL SALINE 50ML 50 ML IV SCH (15:46)
[2019-06-28] MEDS: ATORVASTATIN CALCIUM 20 MG TABLET PO SCH (21:37)
[2019-06-29 03:35] VITALS: BP 127/49
[2019-06-29 07:00] VITALS: BP 120/38
[2019-06-29] MEDS: INSULIN LISPRO 300 UNITS/3 ML VIAL. SQ SCH ×2 (07:30→11:30)
--- NOTE | 2019-06-29 07:55 | PDOC ---
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 -PLAN continued risk factor modification to include good diabetes control, hypertensive management, hyperlipidemia management Gait instability - PT/OT evaluate sepsis, UTI Acute kidney injury - vasomotor nephropathy. History of prostate cancer status post radiation and hormonal therapy last couple of years ago - has good f/u Anemia - DM2 - place on low sliding scale HLD - cont statin HTN - Continue empiric ceftriaxone. Continue daptomycin NEEDS final ID and THALIA of GPC in blood cultures d/c augmentin x 10 days today 25 min pt exam,chart review d/c planning , > 50% of time spent with exam, chart review pt care coordination History of Present Illness History of Present Illness consult vacular, carotid and other stenosis, Pt and OT, OK cx pending, cont IV abx for UTI, 1/ blood cx pos, poss contam, vitals much improved from yesterday cont current 39 MIN PT EXAM, CHART REVIEW, > 50% OF TIME SPENT WITH EXAM, CHART REVIEW, PT CARE COORDINATION Vitals Vitals Vital Signs Date Time Temp Pulse Resp B/P (MAP) Pulse Ox O2 Delivery O2 Flow Rate FiO2 06/29/19 03:35 98.1 71 18 127/49 (75) 97 Room Air 98.1 Physical Exam General: Alert, Oriented X3, Cooperative, No acute distress Heart: Regular rate Lungs: Clear Abdomen: Normal bowel sounds, Soft, No hepatosplenomegaly, No masses, Other (epigastric tenderness) Extremities: No clubbing, No cyanosis, No edema, Normal pulses, No tenderness/swelling Skin: No rashes, No breakdown, No significant lesion Labs LABS PATIENT: GEORGE VELAZQUEZ ACCT: [id number] LOC: [address] [place] [address] U: [id number] AGE/SX: 84/M ROOM: 654 RE06/24/[address]: LIZ ZAMBRANO MD : 1935 BED: 1 DIS: STATUS: ADM IN TLOC: SPEC #: [id number] JODI: 06/24/19 STATUS: COMP REQ #: [id number] RECD: 06/24/[address]: SHADIA WOODS APRN SOURCE: BLOOD ENTR: 06/25/19-[address]: CONNIE GRAVES MD SPDESC: ORDERED: BLD CULT - LC Procedure Result BLOOD CULTURE LC Final Final report BLD CULT RESULT 1 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 Performed at: [facility], [place], [place] [id number] Pricing Analyst: SG Mcguire MD, Phone: [phone] Laboratory Tests Test 06/28/19 11:28 06/28/19 16:45 06/28/19 21:26 06/29/19 07:39 Glucose (Fingerstick) 82 mg/dL (70-99) 120 mg/dL (70-99) 117 mg/dL (70-99) 100 mg/dL (70-99) Assessment and Plan Assessmemt and Plan Problems Medical Problems: (1) EARNESTINE (acute kidney injury) Status: Acute (2) Anemia Status: Chronic (3) DM2 (diabetes mellitus, type 2) Status: Chronic (4) HLD (hyperlipidemia) Status: Chronic (5) HTN (hypertension) Status: Chronic (6) Sepsis Status: Acute (7) Urinary tract infection Status: Acute Comment Review of Relevant I have reviewed the following items dale (where applicable) has been applied. Labs Laboratory Tests Test 06/27/19 11:36 06/27/19 16:41 06/27/19 20:50 06/28/19 02:50 Glucose (Fingerstick) 136 mg/dL (70-99) 107 mg/dL (70-99) 116 mg/dL (70-99) White Blood Count 6.5 x10^3/uL (4.0-11.0) Red Blood Count 3.17 x10^6/uL (4.30-5.70) Hemoglobin 9.1 g/dL (13.0-17.5) Hematocrit 27.0 % (39.0-53.0) Mean Corpuscular Volume 85 fL (79-100) Mean Corpuscular Hemoglobin 29 pg (25-35) Mean Corpuscular Hemoglobin Concent 34 g/dL (31-37) Red Cell Distribution Width 15.0 % (11.5-14.5) Platelet Count 261 x10^3/uL (140-400) Neutrophils (%) (Auto) 70 % (31-73) Lymphocytes (%) (Auto) 18 % (24-48) Monocytes (%) (Auto) 7 % (0-9) Eosinophils (%) (Auto) 5 % (0-3) Basophils (%) (Auto) 1 % (0-3) Neutrophils # (Auto) 4.5 x10^3/uL (1.8-7.7) Lymphocytes # (Auto) 1.2 x10^3/uL (1.0-4.8) Monocytes # (Auto) 0.4 x10^3/uL (0.0-1.1) Eosinophils # (Auto) 0.3 x10^3/uL (0.0-0.7) Basophils # (Auto) 0.1 x10^3/uL (0.0-0.2) Sodium Level 145 mmol/L (136-145) Potassium Level 3.9 mmol/L (3.5-5.1) Chloride Level 108 mmol/L (98-107) Carbon Dioxide Level 26 mmol/L (21-32) Anion Gap 11 (6-14) Blood Urea Nitrogen 12 mg/dL (8-26) Creatinine 1.2 mg/dL (0.7-1.3) Estimated GFR (Cockcroft-Gault) 69.6 BUN/Creatinine Ratio 10 (6-20) Glucose Level 94 mg/dL (70-99) Calcium Level 8.1 mg/dL (8.5-10.1) Total Bilirubin 0.3 mg/dL (0.2-1.0) Aspartate Amino Transf (AST/SGOT) 21 U/L (15-37) Alanine Aminotransferase (ALT/SGPT) 12 U/L (16-63) Alkaline Phosphatase 51 U/L (46-116) Total Protein 6.8 g/dL (6.4-8.2) Albumin 3.1 g/dL (3.4-5.0) Albumin/Globulin Ratio 0.8 (1.0-1.7) Test 06/28/19 07:23 06/28/19 11:28 06/28/19 16:45 06/28/19 21:26 Glucose (Fingerstick) 89 mg/dL (70-99) 82 mg/dL (70-99) 120 mg/dL (70-99) 117 mg/dL (70-99) Test 06/29/19 07:39 Glucose (Fingerstick) 100 mg/dL (70-99) Laboratory Tests Test 06/28/19 11:28 06/28/19 16:45 06/28/19 21:26 06/29/19 07:39 Glucose (Fingerstick) 82 mg/dL (70-99) 120 mg/dL (70-99) 117 mg/dL (70-99) 100 mg/dL (70-99) Microbiology 06/24/19 Urine Culture - Final, Complete 06/24/19 Urine Culture Result 1 (THALIA) - Final, Complete 06/24/19 Blood Culture - Preliminary, Resulted NO GROWTH AFTER 4 DAYS Medications Current Medications Prochlorperazine Edisylate (Compazine) 10 mg 1X ONCE IV Last administered on 06/24/19at 09:36; Start 06/24/19 at 09:15; Stop 06/24/19 at 09:16; Status DC Sodium Chloride 500 ml @ 500 mls/hr 1X ONCE IV Last administered on 06/24/19at 09:36; Start 06/24/19 at 09:15; Stop 06/24/19 at 10:14; Status DC Ceftriaxone Sodium (Rocephin) 1 gm 1X ONCE IVP Last administered on 06/24/19at 10:49; Start 06/24/19 at 10:45; Stop 06/24/19 at 10:46; Status DC Sodium Chloride 1,000 ml @ 1,000 mls/hr 1X ONCE IV Last administered on 06/24/19at 10:49; Start 06/24/19 at 10:45; Stop 06/24/19 at 11:44; Status DC Sodium Chloride 1,000 ml @ 1,000 mls/hr 1X ONCE IV Last administered on 06/24/19at 10:49; Start 06/24/19 at 10:45; Stop 06/24/19 at 11:44; Status DC Ondansetron HCl (Zofran) 4 mg PRN Q8HRS PRN IV NAUSEA/VOMITING; Start 06/24/19 at 12:00; Stop 06/25/19 at 11:59; Status DC Fentanyl Citrate (Fentanyl 2ml Vial) 50 mcg PRN Q1HR PRN IV PAIN; Start 06/24/19 at 12:00; Stop 06/25/19 at 11:59; Status DC Amlodipine Besylate (Norvasc) 5 mg DAILY PO Last administered on 06/28/19 09:36; Start 06/24/19 at 16:00 Aspirin (Children'S Aspirin) 81 mg DAILY PO Last administered on 06/28/19 09:36; Start 06/24/19 at 16:00 Atorvastatin Calcium (Lipitor) 20 mg QHS PO Last administered on 06/28/19at 21:41; Start 06/24/19 at 21:00 Sodium Bicarbonate (Sodium Bicarbonate) 1,300 mg BID PO Last administered on 06/28/19 21:41; Start 06/24/19 at 21:00 Non-Formulary Medication (Ipratropium/ Albuterol Sulfate (Combivent Respimat Inhal)) 1 inh QID IH ; Start 06/24/19 at 17:00; Status UNV Insulin Human Lispro (HumaLOG) 0-5 UNITS TIDACHC SQ ; Start 06/24/19 at 16:30 Dextrose (Dextrose 50%-Water Syringe) 12.5 gm PRN Q15MIN PRN IV SEE COMMENTS; Start 06/24/19 at 15:45 Dextrose 250 ml PRN Q15MIN PRN IV SEE COMMENTS; Start 06/24/19 at 15:45 Albuterol/ Ipratropium (Duoneb) 3 ml RTQID NEB Last administered on 06/28/19at 20:32; Start 06/24/19 at 16:00 Ceftriaxone Sodium (Rocephin) 1 gm Q24H IVP Last administered on 06/28/19at 09:36; Start 06/25/19 at 09:00 Daptomycin 440 mg/ Sodium Chloride 50 ml @ 100 mls/hr ONCE IV ; Start 06/26/19 at 12:00; Status Cancel Daptomycin 440 mg/ Sodium Chloride 50 ml @ 100 mls/hr ONCE ONCE IV Last administered on 06/26/19at 14:21; Start 06/26/19 at 12:45; Stop 06/26/19 at 13:14; Status DC Lactobacillus Rhamnosus (Culturelle) 1 cap BID PO Last administered on 06/28/19at 21:41; Start 06/26/19 at 21:00 Daptomycin 440 mg/ Sodium Chloride 50 ml @ 100 mls/hr Q24H IV Last administered on 9/12/19at 15:46; Start 06/27/19 at 11:30 Active Scripts Active Combivent Respimat Inhal (Ipratropium/Albuterol Sulfate) 4 Gm Aer.w.adap 1 Inh IH QID Levaquin (Levofloxacin) 250 Mg Tablet 250 Mg PO DAILY Sodium Bicarbonate 650 Mg Tablet 1,300 Mg PO BID Amlodipine Besylate 5 Mg Tablet 5 Mg PO DAILY Reported Ddavp (Desmopressin Acetate) 0.2 Mg Tablet 0.1 Mg PO QHS Aspirin 81 Mg Tab.chew 1 Tab PO DAILY Losartan-Hctz 100-12.5 Mg Tab (Losartan/Hydrochlorothiazide) 1 Each Tablet 1 Tab PO DAILY Atorvastatin Calcium 20 Mg Tablet 20 Mg PO DAILY Metformin Hcl Er (Metformin Hcl) 500 Mg Tab.er.24h 500 Mg PO DAILYWBKFT Unable To Obtain Meds From Prior To Admit (Info) Each 1 Each Vitals/I & O Vital Sign - Last 24 Hours 06/28/19 06/28/19 06/28/19 06/28/19 08:15 09:36 11:26 11:40 Temp 98.3 98.3 Pulse 67 72 Resp 18 B/P (MAP) 123/48 107/44 (65) Pulse Ox 98 98 O2 Delivery Room Air Room Air Room Air 06/28/19 06/28/19 06/28/19 06/28/19 15:18 15:46 19:18 20:15 Temp 98.1 97.6 98.1 97.6 Pulse 72 75 Resp 18 18 B/P (MAP) 118/45 (69) 140/47 (78) Pulse Ox 100 98 100 O2 Delivery Room Air Room Air Room Air Room Air 06/28/19 06/28/19 06/29/19 20:18 23:59 03:35 Temp 98.3 98.1 98.3 98.1 Pulse 69 71 Resp 18 18 B/P (MAP) 133/58 (83) 127/49 (75) Pulse Ox 99 97 O2 Delivery Room Air Room Air Room Air Intake and Output 06/28/19 06/28/19 06/29/19 14:59 22:59 06:59 Intake Total 500 ml 200 ml 240 ml Output Total 300 ml Balance 500 ml 200 ml -60 ml RONEL HUNT MD Jun 29, 2019 07:55
[2019-06-29] MEDS: IPRATRPIUM/ALBUTEROL 0.5/2.5MG 3 ML NEBU. NEB SCH ×2 (08:22→12:05)
[2019-06-29] MEDS: ASPIRIN CHEWABLE 81 MG TABLET. PO SCH (09:55)
[2019-06-29] MEDS: LACTOBACILLUS RHAMNOSUS GG 1 CAPSULE. PO SCH (09:55)
[2019-06-29] MEDS: SODIUM BICARBONATE 650 MG TABLET. PO SCH (09:55)
[2019-06-29] MEDS: amLODIPine BESYLATE 5 MG TABLET PO SCH (09:56)
[2019-06-29] MEDS: cefTRIAXone IV Push 1 GM VIAL. IVP SCH (09:56)
--- NOTE | 2019-06-29 10:01 | PDOC ---
Infectious Disease Note Subjective: Subjective pt doing well eager for dc no f/c/n/v/d/abdo pain/gu symptoms ROS: ROS Negative otherwise. Vital Signs: Vital Signs Vital Signs Date Time Temp Pulse Resp B/P (MAP) Pulse Ox O2 Delivery O2 Flow Rate FiO2 06/29/19 09:56 76 120/38 06/29/19 08:24 98 Room Air 06/29/19 07:00 97.6 18 97.6 Medications: Inpatient Meds: Current Medications Medications (Trade) Dose Ordered Sig/Velia Start Time Stop Time Status Last Admin Dose Admin Albuterol/ Ipratropium (Duoneb) 3 ml RTQID 06/24/19 16:00 06/29/19 08:22 3 ML Amlodipine Besylate (Norvasc) 5 mg DAILY 06/24/19 16:00 06/29/19 09:56 5 MG Aspirin (Children'S Aspirin) 81 mg DAILY 06/24/19 16:00 06/29/19 09:56 81 MG Atorvastatin Calcium (Lipitor) 20 mg QHS 06/24/19 21:00 06/28/19 21:41 20 MG Ceftriaxone Sodium (Rocephin) 1 gm Q24H 06/25/19 09:00 06/29/19 09:56 1 GM Daptomycin 440 mg/ Sodium Chloride 50 ml @ 100 mls/hr Q24H 06/27/19 11:30 06/28/19 15:46 100 MLS/HR Dextrose 250 ml PRN Q15MIN PRN 06/24/19 15:45 Dextrose (Dextrose 50%-Water Syringe) 12.5 gm PRN Q15MIN PRN 06/24/19 15:45 Fentanyl Citrate (Fentanyl 2ml Vial) 50 mcg PRN Q1HR PRN 06/24/19 12:00 06/25/19 11:59 DC Insulin Human Lispro (HumaLOG) 0-5 UNITS TIDACHC 06/24/19 16:30 Lactobacillus Rhamnosus (Culturelle) 1 cap BID 06/26/19 21:00 06/29/19 09:56 1 CAP Non-Formulary Medication (Ipratropium/ Albuterol Sulfate (Combivent Respimat Inhal)) 1 inh QID 06/24/19 17:00 UNV Ondansetron HCl (Zofran) 4 mg PRN Q8HRS PRN 06/24/19 12:00 06/25/19 11:59 DC Prochlorperazine Edisylate (Compazine) 10 mg 1X ONCE 06/24/19 09:15 06/24/19 09:16 DC 06/24/19 09:36 10 MG Sodium Bicarbonate (Sodium Bicarbonate) 1,300 mg BID 06/24/19 21:00 06/29/19 09:56 1,300 MG Sodium Chloride 1,000 ml @ 1,000 mls/hr 1X ONCE 06/24/19 10:45 06/24/19 11:44 DC 06/24/19 10:49 1,000 MLS/HR Labs: Lab Laboratory Tests Test 06/28/19 11:28 06/28/19 16:45 06/28/19 21:26 06/29/19 07:39 Glucose (Fingerstick) 82 mg/dL (70-99) 120 mg/dL (70-99) 117 mg/dL (70-99) 100 mg/dL (70-99) Objective: Assessment: 1. Bacteremia aerococcus urinae;2 out of 4 bottles prior to admission significance ?? 2. Leukocytosis. 3. Lactic acidosis. 4. Febrile illness. 5. Dizziness, nausea and vomiting, resolved. 6. Acute kidney injury. 7. History of prostate cancer, status post radiation and hormonal therapy. 8. Anemia. 9. Diabetes mellitus 2. 10. Hyperlipidemia/hypertension. 11. Carotid stenosis, bilateral, and left subclavian arterial stenosis. Plan: Plan of Care s/p dose of ceftriaxone today ok to dc on augmentin for 10 days, script in chart f/u [facility] 4 weeks d/w and ANABELL Killian MD Jun 29, 2019 10:01
[2019-06-29 11:20] VITALS: BP 101/40
[2019-06-29] MEDS: DAPTOmycin (GENERIC) IVPB 440 MG in IV NORMAL SALINE 50ML 50 ML IV SCH (11:30)
--- NOTE | 2019-06-29 12:28 | PDOC3 ---
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 -PLAN continued risk factor modification to include good diabetes control, hypertensive management, hyperlipidemia management Gait instability - PT/OT evaluate sepsis, UTI Acute kidney injury - vasomotor nephropathy. History of prostate cancer status post radiation and hormonal therapy last couple of years ago - has good f/u Anemia - DM2 - place on low sliding scale HLD - cont statin HTN - d/c ceftriaxone. Continue daptomycin NEEDS final ID and THALIA of GPC in blood cultures d/c augmentin x 10 days today 25 min pt exam,chart review d/c planning , > 50% of time spent with exam, chart review pt care coordination History of Present Illness History of Present Illness consult vacular, carotid and other stenosis, Pt and OT, OK cx pending, cont IV abx for UTI, 1/ blood cx pos, poss contam, vitals much improved from yesterday cont current FINAL DIAGNOSIS Problems Medical Problems: (1) EARNESTINE (acute kidney injury) Status: Acute (2) Anemia Status: Chronic (3) DM2 (diabetes mellitus, type 2) Status: Chronic (4) HLD (hyperlipidemia) Status: Chronic (5) HTN (hypertension) Status: Chronic (6) Sepsis Status: Acute (7) Urinary tract infection Status: Acute Brief Hospital Course Mr. Hollins is a 84 old [sex] who presented with [sepsis ] CONDITION AT DISCHARGE: Improved Discharge Medications Current Medications Prochlorperazine Edisylate (Compazine) 10 mg 1X ONCE IV Last administered on 06/24/19at 09:36; Start 06/24/19 at 09:15; Stop 06/24/19 at 09:16; Status DC Sodium Chloride 500 ml @ 500 mls/hr 1X ONCE IV Last administered on 06/24/19at 09:36; Start 06/24/19 at 09:15; Stop 06/24/19 at 10:14; Status DC Ceftriaxone Sodium (Rocephin) 1 gm 1X ONCE IVP Last administered on 06/24/19at 10:49; Start 06/24/19 at 10:45; Stop 06/24/19 at 10:46; Status DC Sodium Chloride 1,000 ml @ 1,000 mls/hr 1X ONCE IV Last administered on 06/24/19at 10:49; Start 06/24/19 at 10:45; Stop 06/24/19 at 11:44; Status DC Sodium Chloride 1,000 ml @ 1,000 mls/hr 1X ONCE IV Last administered on 06/24/19at 10:49; Start 06/24/19 at 10:45; Stop 06/24/19 at 11:44; Status DC Ondansetron HCl (Zofran) 4 mg PRN Q8HRS PRN IV NAUSEA/VOMITING; Start 06/24/19 at 12:00; Stop 06/25/19 at 11:59; Status DC Fentanyl Citrate (Fentanyl 2ml Vial) 50 mcg PRN Q1HR PRN IV PAIN; Start 06/24/19 at 12:00; Stop 06/25/19 at 11:59; Status DC Amlodipine Besylate (Norvasc) 5 mg DAILY PO Last administered on 06/29/19at 09:56; Start 06/24/19 at 16:00 Aspirin (Children'S Aspirin) 81 mg DAILY PO Last administered on 06/29/19at 09:56; Start 06/24/19 at 16:00 Atorvastatin Calcium (Lipitor) 20 mg QHS PO Last administered on 06/28/19at 21:41; Start 06/24/19 at 21:00 Sodium Bicarbonate (Sodium Bicarbonate) 1,300 mg BID PO Last administered on 06/29/19at 09:56; Start 06/24/19 at 21:00 Non-Formulary Medication (Ipratropium/ Albuterol Sulfate (Combivent Respimat Inhal)) 1 inh QID IH ; Start 06/24/19 at 17:00; Status UNV Insulin Human Lispro (HumaLOG) 0-5 UNITS TIDACHC SQ ; Start 06/24/19 at 16:30 Dextrose (Dextrose 50%-Water Syringe) 12.5 gm PRN Q15MIN PRN IV SEE COMMENTS; Start 06/24/19 at 15:45 Dextrose 250 ml PRN Q15MIN PRN IV SEE COMMENTS; Start 06/24/19 at 15:45 Albuterol/ Ipratropium (Duoneb) 3 ml RTQID NEB Last administered on 06/29/19at 12:05; Start 06/24/19 at 16:00 Ceftriaxone Sodium (Rocephin) 1 gm Q24H IVP Last administered on 06/29/19at 09:56; Start 06/25/19 at 09:00 Daptomycin 440 mg/ Sodium Chloride 50 ml @ 100 mls/hr ONCE IV ; Start 06/26/19 at 12:00; Status Cancel Daptomycin 440 mg/ Sodium Chloride 50 ml @ 100 mls/hr ONCE ONCE IV Last administered on 06/26/19at 14:21; Start 06/26/19 at 12:45; Stop 06/26/19 at 13:14; Status DC Lactobacillus Rhamnosus (Culturelle) 1 cap BID PO Last administered on 06/29/19at 09:56; Start 06/26/19 at 21:00 Daptomycin 440 mg/ Sodium Chloride 50 ml @ 100 mls/hr Q24H IV Last administered on 06/28/19at 15:46; Start 06/27/19 at 11:30; Stop 06/29/19 at 12:15; Status DC Active Scripts Active Combivent Respimat Inhal (Ipratropium/Albuterol Sulfate) 4 Gm Aer.w.adap 1 Inh IH QID Levaquin (Levofloxacin) 250 Mg Tablet 250 Mg PO DAILY Sodium Bicarbonate 650 Mg Tablet 1,300 Mg PO BID Amlodipine Besylate 5 Mg Tablet 5 Mg PO DAILY Reported Ddavp (Desmopressin Acetate) 0.2 Mg Tablet 0.1 Mg PO QHS Aspirin 81 Mg Tab.chew 1 Tab PO DAILY Losartan-Hctz 100-12.5 Mg Tab (Losartan/Hydrochlorothiazide) 1 Each Tablet 1 Tab PO DAILY Atorvastatin Calcium 20 Mg Tablet 20 Mg PO DAILY Metformin Hcl Er (Metformin Hcl) 500 Mg Tab.er.24h 500 Mg PO DAILYWBKFT Unable To Obtain Meds From Prior To Admit (Info) Each 1 Each Vital Signs Vital Signs Date Time Temp Pulse Resp B/P (MAP) Pulse Ox O2 Delivery O2 Flow Rate FiO2 06/29/19 12:06 Room Air 06/29/19 11:20 98.4 76 18 101/40 (60) 100 98.4 Labs Laboratory Tests Test 06/27/19 16:41 06/27/19 20:50 06/28/19 02:50 06/28/19 07:23 Glucose (Fingerstick) 107 mg/dL (70-99) 116 mg/dL (70-99) 89 mg/dL (70-99) White Blood Count 6.5 x10^3/uL (4.0-11.0) Red Blood Count 3.17 x10^6/uL (4.30-5.70) Hemoglobin 9.1 g/dL (13.0-17.5) Hematocrit 27.0 % (39.0-53.0) Mean Corpuscular Volume 85 fL (79-100) Mean Corpuscular Hemoglobin 29 pg (25-35) Mean Corpuscular Hemoglobin Concent 34 g/dL (31-37) Red Cell Distribution Width 15.0 % (11.5-14.5) Platelet Count 261 x10^3/uL (140-400) Neutrophils (%) (Auto) 70 % (31-73) Lymphocytes (%) (Auto) 18 % (24-48) Monocytes (%) (Auto) 7 % (0-9) Eosinophils (%) (Auto) 5 % (0-3) Basophils (%) (Auto) 1 % (0-3) Neutrophils # (Auto) 4.5 x10^3/uL (1.8-7.7) Lymphocytes # (Auto) 1.2 x10^3/uL (1.0-4.8) Monocytes # (Auto) 0.4 x10^3/uL (0.0-1.1) Eosinophils # (Auto) 0.3 x10^3/uL (0.0-0.7) Basophils # (Auto) 0.1 x10^3/uL (0.0-0.2) Sodium Level 145 mmol/L (136-145) Potassium Level 3.9 mmol/L (3.5-5.1) Chloride Level 108 mmol/L (98-107) Carbon Dioxide Level 26 mmol/L (21-32) Anion Gap 11 (6-14) Blood Urea Nitrogen 12 mg/dL (8-26) Creatinine 1.2 mg/dL (0.7-1.3) Estimated GFR (Cockcroft-Gault) 69.6 BUN/Creatinine Ratio 10 (6-20) Glucose Level 94 mg/dL (70-99) Calcium Level 8.1 mg/dL (8.5-10.1) Total Bilirubin 0.3 mg/dL (0.2-1.0) Aspartate Amino Transf (AST/SGOT) 21 U/L (15-37) Alanine Aminotransferase (ALT/SGPT) 12 U/L (16-63) Alkaline Phosphatase 51 U/L (46-116) Total Protein 6.8 g/dL (6.4-8.2) Albumin 3.1 g/dL (3.4-5.0) Albumin/Globulin Ratio 0.8 (1.0-1.7) Test 06/28/19 11:28 06/28/19 16:45 06/28/19 21:26 06/29/19 07:39 Glucose (Fingerstick) 82 mg/dL (70-99) 120 mg/dL (70-99) 117 mg/dL (70-99) 100 mg/dL (70-99) Test 06/29/19 11:55 Glucose (Fingerstick) 89 mg/dL (70-99) Laboratory Tests Test 06/28/19 16:45 06/28/19 21:26 06/29/19 07:39 06/29/19 11:55 Glucose (Fingerstick) 120 mg/dL (70-99) 117 mg/dL (70-99) 100 mg/dL (70-99) 89 mg/dL (70-99) Allergies Allergies Coded Allergies Type Severity Reaction Last Updated Verified No Known Drug Allergies 10/03/17 No Disposition/Orders: D/C to Home RONEL HUNT MD Jun 29, 2019 12:28
[2019-06-29] MEDS ORDERED: AMOX1TAB58 PO (12:30)
[2019-06-29] MEDS ORDERED: LACT1CAP19 PO (12:30)
--- NOTE | 2019-06-29 13:23 | NUR ---
Discharge instructions given to patient and spouse regarding medications and follow up appointments with Dr. Palomo Hathaway and Dr. Laird. Contact information given. Education given over urinary tract infections and dizziness. Patient and spouse verbalizes understanding.
== END 2019-06-29 13:20 | disposition home or self-care (01) | DRG 871 ==
LOC: ER 08:54 → 6 SOUTH 11:50
PROVIDERS: ADMIT Internal Medicine; ATTEND Internal Medicine
DX: A41.9 Sepsis, unspecified organism (principal); N17.0 Acute kidney failure with tubular necrosis; N39.0 Urinary tract infection, site not specified; E78.00 Pure hypercholesterolemia, unspecified; E11.9 Type 2 diabetes mellitus without complications; I10 Essential (primary) hypertension; M19.90 Unspecified osteoarthritis, unspecified site; E78.5 Hyperlipidemia, unspecified; Z79.82 Long term (current) use of aspirin; I65.23 Occlusion and stenosis of bilateral carotid arteries; I70.8 Atherosclerosis of other arteries; I77.1 Stricture of artery; D64.9 Anemia, unspecified; Z85.46 Personal history of malignant neoplasm of prostate; Z83.3 Family history of diabetes mellitus; Z92.3 Personal history of irradiation
CPT/HCPCS: 36415; 71046; 80053; 81001; 82550; 82962; 83605; 83880; 84145; 84484; 85007; 85025; 87040; 87086; 87205; 93005; 93880; 94640; 94760; J0696; J0780; J0878; J1815; J7030; J7040; J7620; 99285-25; G0378

== ENCOUNTER 2021-04-29 12:34 | Emergency (ER) | payer MEDICARE, BC ==
[~2021-04-29] VITALS: Ht 170.2 cm; Wt 76.3 kg
[~2021-04-29 12:34] MED LIST changes: +AMLO-186 PO; -AMLO5TAB10 PO; +AMOX1TAB58 PO; +DESM0.2T20 PO; +LACT1CAP19 PO; +METF-658 PO; -METF500T11 PO
[2021-04-29 14:41] LABS: CLARITY,URINE BLOODY; COLOR,URINE RED; RBC,URINE TNTC /HPF (0-2)
[2021-04-29 14:43] LABS: BACTERIA,URINE MANY /HPF (0-FEW)
--- NOTE | 2021-04-29 16:04 | PHYS DOC ---
Past Medical History Past Medical History: Cancer, Diabetes-Type II, High Cholesterol, Hypertension Additional Past Medical Histor: PROSTATE CANCER, (TRACI MAGALLON DO) Past Surgical History: No Surgical History (TRACI MAGALLON DO) Smoking Status: Current Some Day Smoker Alcohol Use: None Drug Use: None (TRACI MAGALLON DO) General Adult EDM: Chief Complaint: BLOOD IN URINE HPI: HPI: Patient is a 85 year old male who present to ER for evaluation of 1 month history blood in his urine, no pain with urination. Patient denies any back pain, no fever. Patient was seen by his doctor, had diagnosed him with UTI, he was put on antibiotic. Patient continued to have blood in his urine, he is not on a blood thinner. Patient denies any abdominal pain, no nausea vomiting, no back pain. Patient denies any rectal pain. Patient went back to his doctor Last week, had a CT scan of his abdomen pelvis, was told that did not show any acute problem. Patient does have a history of prostate cancer. COPIES OF THE REPORT OF CT SCAN OF ABDOMEN AND PELVIS UROGRAPHY WITHOUT AND [facility] [place] [facility]: Impression: " 1-Thin urothelial enhancement within the bladder, raising the possibility of cystitis. There is no associated bladder wall thickening or CT evidence of bladder wall mass. 2- 0.7 x 0.7 cm probable hemorrhagic cyst within the anterior left kidney, as well as simple appearing left renal cortical cyst. Otherwise, normal CT appearance of the kidneys and ureters. 3- Aortoiliac, superior mesenteric artery, and bilateral proximal renal artery atherosclerosis. 4- Evidence of prior granulomatous infection. per Dr. Miguelito Smith MD. " (TRACI MAGALLON DO) Review of Systems: Review of Systems: Constitutional: Denies fever or chills. [] Eyes: Denies change in visual acuity. [] HENT: Denies nasal congestion or sore throat. [] Respiratory: Denies cough or shortness of breath. [] Cardiovascular: Denies chest pain or edema. [] GI: Denies abdominal pain, nausea, vomiting, bloody stools or diarrhea. [] : Denies dysuria. Positive hematuria Musculoskeletal: Denies back pain or joint pain. [] Integument: Denies rash. [] Neurologic: Denies headache, focal weakness or sensory changes. [] Endocrine: Denies polyuria or polydipsia. [] Lymphatic: Denies swollen glands. [] Psychiatric: Denies depression or anxiety. [] (TRACI MAGALLON DO) Heart Score: C/O Chest Pain: N/A Risk Factors: Risk Factors: DM, Current or recent (<one month) smoker, HTN, HLP, family history of CAD, obesity. Risk Scores: Score 0 - 3: 2.5% MACE over next 6 weeks - Discharge Home Score 4 - 6: 20.3% MACE over next 6 weeks - Admit for Clinical Observation Score 7 - 10: 72.7% MACE over next 6 weeks - Early Invasive Strategies (TRACI MAGALLON DO) C/O Chest Pain: N/A (ROM GOLDSMITH DO) Allergies: Allergies: Allergies Coded Allergies Type Severity Reaction Last Updated Verified No Known Drug Allergies 10/03/17 No (TRACI MAGALLON DO) Physical Exam: PE: Constitutional: Well developed, well nourished, no acute distress, non-toxic appearance. [] HENT: Normocephalic, atraumatic, bilateral external ears normal, oropharynx moist, no oral exudates, nose normal. [] Eyes: PERRLA, EOMI, conjunctiva normal, no discharge. [] Neck: Normal range of motion, no tenderness, supple, no stridor. [] Cardiovascular:Heart rate regular rhythm, no murmur [] Lungs & Thorax: Bilateral breath sounds clear to auscultation [] Abdomen: Bowel sounds normal, soft, no tenderness, no masses, no pulsatile masses. [] Skin: Warm, dry, no erythema, no rash. [] Back: No tenderness, no CVA tenderness. [] Extremities: No tenderness, no cyanosis, no clubbing, ROM intact, no edema. [] Neurologic: Alert and oriented X 3, normal motor function, normal sensory function, no focal deficits noted. [] Psychologic: Affect normal, judgement normal, mood normal. [] (TRACI MAGALLON DO) Current Patient Data: Labs: Laboratory Tests Test 04/29/21 14:18 Urine Collection Type Unknown Urine Color Red Urine Clarity Bloody Urine pH (<5.0-8.0) Urine Specific [place] (1.000-1.030) Urine Protein mg/dL (NEG-TRACE) Urine Glucose (UA) mg/dL (NEG) Urine Ketones (Stick) mg/dL (NEG) Urine Blood (NEG) Urine Nitrite (NEG) Urine Bilirubin (NEG) Urine Urobilinogen Dipstick mg/dL (0.2 mg/dL) Urine Leukocyte Esterase (NEG) Urine RBC Tntc /HPF (0-2) Urine WBC /HPF (0-4) Urine Bacteria Many /HPF (0-FEW) Vital Signs: Vital Signs Date Time Temp Pulse Resp B/P (MAP) Pulse Ox O2 Delivery O2 Flow Rate FiO2 04/29/21 14:10 97.3 65 16 181/77 (60) 99 Room Air 97.3 (TRACI MAGALLON DO) EKG: EKG: [] (TRACI MAGALLON DO) Radiology/Procedures: Radiology/Procedures: [] (TRACI MAGALLON DO) Course & Med Decision Making: Course & Med Decision Making Pertinent Labs and Imaging studies reviewed. (See chart for details) Patient care was checked out to Dr. Goldsmith at shift change (TRACI MAGALLON DO) Course & Med Decision Making Assumed care at shift change disposition pending labs. Patient creatinine noted to be at 1.5 seems to be patient's baseline. Previous creatinine was 1.2, 1.6, 1.3, 1.4, and 1.6. Patient's urine urine RBCs too many to count. Color bloody. Patient had outpatient imaging CT abdomen pelvis urography with and without contrast performed on 04/24/2021. Radiologist impression possible cystitis no associated bladder wall thickening or CT evidence of bladder mass hemorrhagic cysts within the anterior left kidney. As well as a simple appearing left renal cortical cyst. Otherwise normal CT appearance of the kidneys and ureters US performed today at [facility]--- right kidney measures 10.5 x 4.8 x 4.9 cm. The left kidney measures 12.0 x 4.7 x 5.4 cm. There is a cystic structure identified in the left kidney measuring 2.3 cm likely cyst. The urinary bladder is distended. IMPRESSION: 2.3 cm cyst left kidney. Patient is currently on an antibiotic. He has instructed to continue his antibiotic and follow-up with his urologist. (ROM GOLDSMITH DO) Dylan Disclaimer: Dylan Disclaimer: This electronic medical record was generated, in whole or in part, using a voice recognition dictation system. (TRACI MAGALLON DO) Departure Departure Impression: Primary Impression: Hematuria Additional Impression: Hemorrhagic cyst Disposition: HOME / SELF CARE / HOMELESS Condition: STABLE Referrals: CONNIE GRAVES MD (PCP) Patient Instructions: Hematuria, Adult Additional Instructions: Continue your current antibiotics. Follow-up with your urologist. TRACI MAGALLON DO Apr 29, 2021 16:04 ROM GOLDSMITH DO Apr 29, 2021 18:12
[2021-04-29 17:39] LABS: BASO % 1 % (0-3); EOS # 0.3 x10^3/uL (0.0-0.7); EOS % 6 % (0-3); HEMATOCRIT 26.8 % (39.0-53.0); HEMOGLOBIN 8.8 g/dL (13.0-17.5); LYMPH % 20 % (24-48); MEAN CORPUSCULAR HEMOGLOBIN 28 pg (25-35); MEAN CORPUSCULAR HGB CONC 33 g/dL (31-37); MEAN CORPUSCULAR VOLUME 85 fL (79-100); MONO # 0.5 x10^3/uL (0.0-1.1); MONO % 9 % (0-9); NEUT # 3.2 x10^3/uL (1.8-7.7); NEUT % 65 % (31-73); PLATELET COUNT 240 x10^3/uL (140-400); RED BLOOD COUNT 3.15 x10^6/uL (4.30-5.70); RED CELL DISTRIBUTION WIDTH 15.5 % (11.5-14.5)
[2021-04-29 17:51] LABS: CALCIUM 9.1 mg/dL (8.5-10.1); CREATININE 1.5 mg/dL (0.7-1.3); GFR 53.7; POTASSIUM 4.1 mmol/L (3.5-5.1)
[2021-04-29 18:01] LABS: ALBUMIN 3.1 g/dL (3.4-5.0); ALBUMIN/GLOBULIN RATIO 0.8 (1.0-1.7); MAGNESIUM 2.1 mg/dL (1.8-2.4); TOTAL BILIRUBIN 0.3 mg/dL (0.2-1.0); TOTAL PROTEIN 6.8 g/dL (6.4-8.2)
--- NOTE | 2021-04-29 18:06 | RAD ---
EXAM: RENAL ULTRASOUND CLINICAL HISTORY: Reason: HEMATURIA FOR 4 WEEKS COMPARISON: 10/04/2017. TECHNIQUE: Ultrasound examination of the bilateral kidneys and urinary bladder was performed. FINDINGS: The right kidney measures 10.5 x 4.8 x 4.9 cm. The left kidney measures 12.0 x 4.7 x 5.4 cm. There is a cystic structure identified in the left kidney measuring 2.3 cm likely cyst. The urinary bladder i s distended. IMPRESSION: 2.3 cm cyst left kidney. Electronically signed by: Hernandez Lopez MD (04/29/2021 6:03 PM) [id number]
[2021-04-29 18:30] VITALS: BP 187/77
== END 2021-04-29 18:35 | disposition home or self-care (01) ==
LOC: ER 12:34
DX: N28.1 Cyst of kidney, acquired (principal); R31.9 Hematuria, unspecified; E11.9 Type 2 diabetes mellitus without complications; E78.00 Pure hypercholesterolemia, unspecified; I10 Essential (primary) hypertension; F17.200 Nicotine dependence, unspecified, uncomplicated; Z85.46 Personal history of malignant neoplasm of prostate
CPT/HCPCS: 36415; 76770; 80053; 81001; 83735; 85025; 87086; 99285-25

== ENCOUNTER → 2022-01-11 | Outpatient (CLI) | payer MEDICARE, BC ==
--- NOTE | 2022-01-12 13:54 | RAD ---
Exam Date: 01/11/2022 12:21 PM US ABDOMEN COMPLETE Indication: Reason: DIFFUSED ABDOMINAL DISTENSION / Spl. Instructions: / History: . TECHNIQUE: Multiple longitudinal and transverse sonographic images of the abdomen are submitted for interpretation. COMPARISON: April 29, 2021 FINDINGS: The liver is normal in size and echogenicity. The portal vein is patent with hepatopetal flow. No focal intrahepatic abnormality is seen. The gallbladder is normal, without gallstones, gallbladder wall thickening or pericholecystic fluid. There is no biliary ductal dilatation, with the common bile duct measuring 5 mm. The spleen is normal in size and echogenicity. The visualized abdominal aorta, inferior vena cava an d pancreas are within normal limits. There is no upper abdominal ascites. There is a 2.5 cm bilobed or septated left renal cyst. The kidneys are normal in appearance, with the right kidney measuring 9.8 cm and the left kidney measuring 11.5 cm. IMPRESSION: Left renal cyst is better visualized on the current exam and measures up to 2.5 cm with bilobed or se ptated appearance. Given the slightly complex appearance and slightly increased size compared to the prior exam, continued sonographic follow-up in 6-12 months is recommended. Electronically signed by: Aldo Raza MD (01/12/2022 1:52 PM) [id number]
== END ==
LOC: US 11:49
PROVIDERS: ATTEND Internal Medicine Gastroenterology
DX: N28.1 Cyst of kidney, acquired (principal); R14.0 Abdominal distension (gaseous)
CPT/HCPCS: 76700